=== PATIENT | male | born 1930 ===

== ENCOUNTER 2017-05-12 06:30 | Day surgery (SDC) | payer MEDICARE ==
[2017-01-06 11:29] VITALS: BMI 25.8
[2017-05-12 07:27] LABS: INR 1.81 (0.93-1.08); PROTHROMBIN TIME 20.1 SECONDS (9.4-12.5)
[2017-05-12] MEDS ORDERED: Propofol 10 mg/ml Inj (20 ML) ONE (07:49)
[2017-05-12] MEDS ORDERED: Lidocaine 2% Inj (20ml) ONE (07:51)
[2017-05-12] MEDS ORDERED: Iohexol 240 (50 ml) ONE (07:57)
[2017-05-12] MEDS ORDERED: Morphine 2 mg/ml ISec IVP PRN (08:49)
[2017-05-12] MEDS ORDERED: Lactated Ringer's 1,000 ML IV SCH (09:00)
--- NOTE | 2017-05-12 09:18 | RAD ---
PROCEDURE: Retrograde pyelogram HISTORY: R/O STONES COMPARISON: TECHNIQUE: Fluoroscopy was provided in the operating room. 55 seconds of fluoro time. Five images were submitted FINDINGS: The renal collecting system is partially visualized. The upper pole infundibulum and calices are opacified as well as a portion of a lower pole infundibulum. The renal pelvis is not opacified. There is a left ureteral stent in place IMPRESSION: As above
[2017-05-12 10:00] VITALS: PULSE 58; RESP 20; TEMP 98.6; O2SAT 97
[2017-05-12 11:14] VITALS: BP 179/84
--- NOTE | 2017-05-12 12:25 | RAD ---
HISTORY: is left ureteral stone visible COMPARISON: No prior. FINDINGS: BOWEL: Normal. No obstruction. No free air. BONES: Normal. OTHER FINDINGS: There is a left ureteral stent. There are no stones seen along side the stent IMPRESSION: No active disease.
--- NOTE | 2017-05-12 15:50 | OP ---
PROCEDURE DATE: 05/12/2017. PREOPERATIVE DIAGNOSIS: Obstructing left ureteral stone. POSTOPERATIVE DIAGNOSIS: Obstructing left ureteral stone. PROCEDURE: Cystoscopy left retrograde and insertion of left pigtail stent. SURGEON: Oskar Werner MD ANESTHESIA: General mask. DESCRIPTION OF OPERATION: After adequate general mask anesthesia was given, the patient was placed lithotomy, prepped and draped in the usual manner. A 22-Citizen Of [place] cystourethroscope was introduced under direct vision. The anterior urethra was normal. Prostatic urethra showed bilobar occlusion. The bladder showed no tumors, foreign bodies or stones. Orifices normal appearance, location. Clear efflux from the right. No efflux from the left. A 5-Citizen Of [place] open-ended catheter was placed to the opening of the left ureteral orifice. A Glidewire 0.035 straight was then advanced up to the left ureter and went up into the left kidney. Upon initial introduction of the cystoscope, urine from the bladder was obtained for C and S. Once the sensor wire was advanced to the kidney, the open-ended catheter was advanced over the Glidewire into the kidney. The Glidewire was removed. There was a hydronephrotic drip and urine was also collected from the left renal pelvis for C and S. I gently injected contrast filling the left renal pelvis. It went to just below the UPJ and would not drain further. At this point a 0.035 sensor wire was placed through the 5-Citizen Of [place] ureteral catheter and the ureteral catheter was then removed. Over the sensor wire, a 6-Citizen Of [place] 28 cm pigtail stent was advanced, when properly placed the Glidewire was removed and the stent coiled nicely in the left renal pelvis and in the bladder. The bladder was drained, the cystoscope was removed. The patient was awake and brought to the recovery room in good condition. Oskar Werner MD
== END 2017-05-12 11:15 | disposition home or self-care (01) ==
LOC: SDS 06:30
PROVIDERS: ATTEND Urology
DX: N20.1 Calculus of ureter (principal); I10 Essential (primary) hypertension; I25.10 Atherosclerotic heart disease of native coronary artery without angina pectoris; I49.9 Cardiac arrhythmia, unspecified
CPT/HCPCS: 36415; 52005; 52332; 74022; 74420; 85610; 85730; 87086; C1769; C2625; J2270; J2405; J2704; J3010; J7120 ×2; Q9966

== ENCOUNTER 2017-06-06 08:27 | Day surgery (SDC) | payer MEDICARE ==
[2017-01-06 11:29] VITALS: BMI 25.8
[2017-06-06] MEDS ORDERED: Iohexol 240 (50 ml) ONE (11:47)
[2017-06-06] MEDS ORDERED: cefTRIAXone (Rocephin) 1 gm Inj ONE (11:47)
[2017-06-06] MEDS ORDERED: Propofol 10 mg/ml Inj (20 ML) ONE (11:48)
[2017-06-06] MEDS ORDERED: Lidocaine 1% Inj (20ml) ONE (11:49)
[2017-06-06] MEDS ORDERED: HYDROmorphone 0.5 mg/0.5 ml ISec IVP PRN (13:10)
[2017-06-06] MEDS ORDERED: Lactated Ringer's 1,000 ML IV SCH (13:15)
[2017-06-06] MEDS ORDERED: HYDROmorphone 0.5 mg/0.5 ml ISec ONE ×2 (13:27→13:47)
[2017-06-06] MEDS ORDERED: HYDROmorphone 0.5 mg/0.5 ml ISec IVP ONE ×2 (13:29→13:49)
[2017-06-06 18:16] VITALS: BP 154/73; PULSE 88; RESP 20; TEMP 97.1; O2SAT 98
--- NOTE | 2017-06-06 22:15 | OP ---
PROCEDURE DATE: 06/06/2017 PREOPERATIVE DIAGNOSES: 1. Left ureteral calculus. 2. Left hydronephrosis. POSTOPERATIVE DIAGNOSIS: Left ureteral calculi. PROCEDURES: 1. Cystoscopy. 2. Removal of left stent. 3. Left ureteroscopy. 4. Laser lithotripsy of multiple calculi. 5. Basket extraction of calculi. 6. Insertion of left ureteral stent. SURGEON: Dr. Nikos Cole. ANESTHESIA: General. SPECIMENS: Stone fragments were sent to pathology. DRAINS: A 6 x 24 left ureteral stent. COMPLICATIONS: There were none. OPERATIVE FINDINGS: After informed consent was obtained, the patient was taken to the operating room, placed on the operating room table. Anesthesia was administered. The patient was placed in the dorsal lithotomy position and prepped and draped in usual sterile fashion. A 22-[place] cystoscope was then placed in the patient's urethra and passed under direct vision until the bladder was entered. A full survey inspection of bladder was then performed, which revealed no stones or tumors. There was a stent noted exiting from the left ureteral orifice. On fluoroscopy, the stent was noted. There were no noted calcific densities along the stent. At this point, the stent was grasped with a grasping forceps and was withdrawn through the urethral meatus. On fluoroscopy, the stent was noted to uncoil easily. The stent was then grasped at the meatus and removed without difficulty. The cystoscope was then repassed and an open-ended ureteral catheter was guided into the left ureteral orifice. Contrast was then instilled into the system during real-time fluoroscopy. There was a filling defect noted in the lower portion of the upper ureter around the L3 vertebral body. At this point, a sensor wire was obtained, it was passed through the open-ended ureteral catheter and advanced up to ureter until it coiled in the upper collecting system. The open-ended ureteral catheter was removed. The bladder was drained. The cystoscope was removed. A 7 [place] semi-rigid ureteroscope was obtained. It was passed into the bladder under direct vision and guided into the left ureteral orifice. The ureteroscope was then advanced proximally up the ureter. In the upper portion of the distal ureter, a stone was noted. It did not appear obstructing, but it was semi-impacted into the lateral ureteral wall. The scope was able to be passed beyond the stone without difficulty and advanced more proximally under direct vision. In the area near the L3 vertebral body, a large yellowish stone was encountered. At this point, a Holmium laser fiber was obtained, it was advanced through the ureteroscope and fragmentation of the stone was begun. The stone was able to be fragmented into multiple small pieces. At this point, the scope was withdrawn to the level of the other stone and again using the laser, the stone was able to be moved off of the wall and fragmented into small pieces. At this point, the laser was placed on standby, the fiber was removed and a stone basket was placed. Starting with upper fragments, the larger fragments were able to be basketed and removed from the patient; multiple passes were made with the ureteroscope. After the last pass, there were no remaining appreciable sized pieces, none of the remaining fragments appeared greater than 1 mm in size. At this point, the procedure was completed, the ureteroscope was removed. The cystoscope was repassed for back loading guidewire. An open-ended ureteral catheter was passed and the guidewire was removed. Contrast was instilled into the system. There were no filling defects noted. There was no extravasation noted. At this point, a 6 x 24 stent was obtained. It was passed over the wire into the bladder and into the left ureter. The stent was advanced proximally until it was in at the appropriate depth. When the stent was in place, guidewire was removed. A coil was seen in renal pelvis on fluoroscopy. A coil was seen in bladder on cystoscopy; string was left intact and to be used for stent removal in my office. At this point, the procedure was completed, the bladder was drained. The cystoscope was removed. The patient tolerated the procedure well and was taken to the recovery room awake in stable condition. Nikos Cole MD
--- NOTE | 2017-06-07 17:49 | RAD ---
PROCEDURE: Fluoroscopy up to 1 hour HISTORY: REMOVAL STENT / LASER LITHOTRIPSY (LEFT) COMPARISON: TECHNIQUE: Fluoroscopy was provided in the operating room. 71.6 seconds of fluoro time were used. Fifteen images were submitted FINDINGS: The study shows placement of a left ureteral stent IMPRESSION: As above
== END 2017-06-06 18:00 | disposition home or self-care (01) ==
LOC: SDS 08:27
PROVIDERS: ATTEND Urology
DX: N13.2 Hydronephrosis with renal and ureteral calculous obstruction (principal); I25.10 Atherosclerotic heart disease of native coronary artery without angina pectoris; I10 Essential (primary) hypertension; I25.2 Old myocardial infarction
CPT/HCPCS: 52352; 52356; 76000; 88300; C1758; C1769; C2625; J0696; J1170; J2704; J3010; J7120 ×2; Q9966

== ENCOUNTER 2017-06-07 13:43 | Inpatient (IN) | payer MEDICARE ==
[2017-06-07 13:44] VITALS: BMI 25.8
--- NOTE | 2017-06-07 15:27 | ED PDOC ---
Arrival/HPI - General Chief Complaint: Abdominal Pain Time Seen by Provider: 06/07/17 14:58 Historian: Patient - History of Present Illness Narrative History of Present Illness (Text): 06/07/17 15:21 A 86 year old male, whose past medical history includes kidney stones with recent stent placement approximately 1 month ago, presents to the emergency department complaining of fevers and chills since last night. Patient was last given Tylenol at 12:00 today. reports patient had surgery yesterday to remove a kidney stone. Patient notes mild nausea but denies any vomiting, diarrhea, abdominal pain, chest pain, shortness of breath, cough, sore throat or any other complaints. Urologist: Dr. Cole Time/Duration: Other (last night) Symptom Course: Unchanged Context: Home Past Medical History - Provider Review Nursing Documentation Reviewed: Yes - Infectious Disease Hx of Infectious Diseases: None - Tetanus Immunization Tetanus Immunization: Unknown - Cardiac Hx Pacemaker: No - Pulmonary Hx Respiratory Disorders: No - Neurological Hx Paralysis: No - HEENT Hx HEENT Disorder: No - Renal Hx Renal Disorder: No Hx Kidney Stones: Yes - Endocrine/Metabolic Hx Endocrine Disorders: No - Hematological/Oncological Hx Blood Transfusions: No - Integumentary Hx Dermatological Disorder: No - Musculoskeletal/Rheumatological Hx Musculoskeletal Disorders: No - Gastrointestinal Hx Bowel Surgery: Yes - Genitourinary/Gynecological Other/Comment: colon CA - Psychiatric Hx Substance Use: No - Surgical History Other/Comment: urinary stents - Anesthesia Hx Malignant Hyperthermia: No - Suicidal Assessment Feels Threatened In Home Enviroment: No Family/Social History - Physician Review Nursing Documentation Reviewed: Yes Family/Social History: No Known Family HX Smoking Status: Former Smoker Hx Alcohol Use: No Hx Substance Use: No Allergies/Home Meds Allergies/Adverse Reactions: Allergies No Known Allergies Allergy (Verified 06/07/17 14:51) Home Medications: Home Meds Medication Instructions Recorded Confirmed Carvedilol [Coreg] 12.5 mg PO DAILY 06/07/17 06/07/17 Quinapril [Accupril] 20 mg PO DAILY 06/07/17 06/07/17 Simvastatin [Zocor] 40 mg PO DAILY 06/07/17 06/07/17 Spironolactone [Aldactone] 25 mg PO DAILY 06/07/17 06/07/17 Zolpidem [Ambien] 10 mg PO DAILY 06/07/17 06/07/17 Review of Systems - Review of Systems Constitutional: Fatigue, Fevers, Night Sweats Eyes: absent: Vision Changes ENT: absent: Sore Throat Respiratory: absent: SOB, Cough Cardiovascular: absent: Chest Pain Gastrointestinal: Nausea. absent: Abdominal Pain, Diarrhea, Vomiting Genitourinary Male: Frequency. absent: Hematuria, Urinary Output Changes Musculoskeletal: Back Pain Skin: absent: Rash Neurological: absent: Dizziness Endocrine: absent: Polyuria Hemo/Lymphatic: absent: Easy Bleeding Physical Exam - Physical Exam Narrative Physical Exam (Text): Head: Atraumatic. Normocephalic. Eyes: PERRL. EOMI. Conjunctivae are not pale. ENT: Mucous membranes are moist and intact. Oropharynx is clear and symmetric. Neck: Supple. Full ROM. No JVD. No lymphadenopathy. Cardiovascular: Regular rate. Regular rhythm. No murmurs, rubs, or gallops. Distal pulses are 2+ and symmetric. Pulmonary/Chest: No evidence of respiratory distress. Clear to auscultation bilaterally. No wheezing, rales or rhonchi. Abdominal: Soft and non-distended. There is no tenderness. No rebound, guarding, or rigidity. No organomegaly. Good bowel sounds. Back: No CVA tenderness. Extremities: No edema. No cyanosis. No clubbing. Full range of motion in all extremities. No calf tenderness. Skin: Skin is warm and dry. No petechiae. No purpura. Neurological: Alert, awake. Motor and sensory exam intact. No meningeal signs. Psychiatric: Good eye contact. Normal interaction, affect, and behavior. 06/07/17 23:07 Vital Signs Reviewed: Yes Vital Signs Temp Pulse Resp BP Pulse Ox 06/07/17 17:27 101 F H 85 18 142/72 95 06/07/17 15:42 99.5 F 06/07/17 14:45 99.1 F 68 17 104/62 95 Temperature: Febrile Blood Pressure: Normal Pulse: Regular Respiratory Rate: Normal Appearance: Positive for: Well-Appearing, Non-Toxic, Comfortable, Uncomfortable Pain Distress: Mild Mental Status: Positive for: Alert and Oriented X 3 Medical Decision Making ED Course and Treatment: 06/07/17 15:21 Impression: A 86 year old male with fever and chills. Patient had surgery yesterday to remove kidney stone. Plan includes sepsis workup and cultures. Will consult with Dr. Cole. Differential Diagnosis included but are not limited to: Sepsis vs. UTI vs. Pyelonephritis Plan: -- Chest xray -- EKG -- Labs -- Blood and Urine culture -- Influenza A B stat -- Rocephin and IV fluids -- Reassess and disposition Progress Notes: Patient on my examination is not tachycardic or hypotensive with serial exams. He denies acute pain. States symptoms of chills, fever nausea occurred "after stones were removed yesterday". Denies these symptoms prior to procedure yesterday. Initially afebrile in ED. No cough. No abdominal pain. No NEW back pain. Denies chest pain or shortness of breath. History supplemented by daughter and family at bedside. Report Date : 06/07/2017 16:40:35 Procedure: Chest xray Dictator : Jameel Canales MD IMPRESSION: No active disease. Initial lactate unremarkable. He remains comfortable, but developed fever in ED. I suspect possible uti, urinary ? stent infection based on history. He has no acute pain at this time. I discussed case directly with Dr. Cole, who reports patient received iv antibiotics yesterday. Labs reviewed. Cr at baseline. Have hydrated patient in ED. As patient with unremarkable lactate, not hypotensive, not tachycardic, baseline creatitine, will initially admit to [facility] bed. IV rocephin ordered. Patient's case d/w hospitalist covering for Dr. Espinosa to monitor symptoms as inpatient and perform serial exams to assess for sepsis. Labs reviewed with patient and family and Dr. Cole. Care turned over to hospitalist at 1800. Further urologic treatment as per Dr. Cole. - Lab Interpretations Microbiology Results: Microbiology Results 06/07/17 15:49 Blood Blood Culture - Preliminary NO GROWTH AFTER 48 HOURS 06/07/17 15:45 Blood Blood Culture - Preliminary NO GROWTH AFTER 24 HOURS 06/07/17 16:25 Urine Urine Culture - Final No Growth (<1,000 CFU/ML) Lab Results: 06/07/17 15:49 06/07/17 15:49 Lab Results 06/07/17 15:54: Influenza Typ A,B (EIA) Negative for flu a/b 06/07/17 15:49: Sodium 135, Chloride 98, Potassium 4.7, Carbon Dioxide 24, Anion Gap 18, BUN 38 H, Creatinine 1.7 H, Est GFR ( Amer) 46, Est GFR ( Non-Af Amer) 38, Random Glucose 132 H, Calcium 9.8, Total Bilirubin 1.2, AST 39 , ALT 59 H, Alkaline Phosphatase 214 H D, Total Protein 7.9, Albumin 4.0, Globulin 3.9, Albumin/Globulin Ratio 1.0 L 06/07/17 15:49: pO2 28 L, VBG pH 7.35, VBG pCO2 46.0, VBG HCO3 25.4, VBG Total CO2 26.8, VBG O2 Sat (Calc) 57.3, VBG Base Excess -0.6 L, VBG Potassium 4.7, Sodium 135.0, Chloride 98.0, Glucose 134 H, Lactate 1.7, FiO2 21.0, Venous Blood Potassium 4.7 06/07/17 15:49: PT 16.7 H, INR 1.45 H, APTT 28.1 06/07/17 15:49: WBC 16.0 H D, RBC 3.95, Hgb 12.5 L, Hct 38.1 L, MCV 96.5, MCH 31.6, MCHC 32.8, RDW 13.8, Plt Count 209, MPV 10.2, Gran % 81.3 H, Lymph % (Auto ) 7.9 L, [place] % (Auto) 10.6 H, Eos % (Auto) 0.1 L, Baso % (Auto) 0.1, Gran # 13.00 H, Lymph # 1.3, [place] # 1.7 H, Eos # 0.0, Baso # 0.02 I have reviewed the lab results: Yes - RAD Interpretation Radiology Orders: 06/07/17 15:36 CHEST TWO VIEWS (PA/LAT) [RAD] Stat - Medication Orders Current Medication Orders: Acetaminophen (Tylenol 325mg Tab) 650 mg PO Q4H PRN PRN Reason: Fever >100.4 F Last Admin: 06/09/17 03:47 Dose: 650 mg MAR Pain/Vitals Document 06/09/17 03:47 LOR (Rec: 06/09/17 03:47 [place] [facility] [id number] Pain Reassessment Is This A Pain ReAssessment? No Sleep Is patient sleeping during reassessment? No Presence of Pain Presence of Pain Yes Location Pain Location Body Warp Dyeing Vat Tender Atorvastatin Calcium (Lipitor) 20 mg PO DIN [facility] Last Admin: 06/08/17 17:41 Dose: 20 mg Carvedilol (Coreg) 12.5 mg PO DAILY [facility] Last Admin: 06/09/17 09:32 Dose: 12.5 mg MAR Pulse and Blood Pressure Document 06/09/17 09:32 CV (Rec: 06/09/17 09:33 CV [facility] [id number] Pulse Pulse Rate (60-90) 77 Blood Pressure Blood Pressure (100/60-150/90) 152/83 Enoxaparin Sodium (Lovenox) 30 mg SC DAILY [facility] PRN Reason: Protocol Last Admin: 06/09/17 09:31 Dose: 30 mg Subcutaneous Administrations Document 06/09/17 09:31 CV (Rec: 06/09/17 09:32 CV [facility] [id number] Charges for Administration # of Subcutaneous Administrations 1 Famotidine (Pepcid) 20 mg PO DAILY [facility] Last Admin: 06/09/17 09:32 Dose: 20 mg Sodium Chloride (Sodium Chloride 0.9%) 1,000 mls @ 125 mls/hr IV .Q8H [facility] Last Admin: 06/09/17 05:53 Dose: 125 mls/hr eMAR Start Stop Document 06/09/17 05:53 ZARAL (Rec: 06/09/17 05:54 ZARAL [facility] [id number] Intravenous Solution Start Date 06/09/17 Start Time 06:00 Vancomycin HCl (Vancomycin 1gm) 1 gm in 250 mls @ 167 mls/hr IVPB DAILY [facility] PRN Reason: Protocol Last Admin: 06/08/17 09:22 Dose: 167 mls/hr eMAR Start Stop Document 06/08/17 09:22 CV (Rec: 06/08/17 09:22 CV [facility] [id number] Intravenous Solution Start Date 06/08/17 Start Time 09:22 Cefepime HCl (Maxipime 1gm) 1 gm in 100 mls @ 100 mls/hr IVPB Q24H [facility] PRN Reason: Protocol Last Admin: 06/08/17 21:20 Dose: 100 mls/hr eMAR Start Stop Document 06/08/17 21:20 ZARAL (Rec: 06/08/17 21:20 ZARAL [facility] [id number] Intravenous Solution Start Date 06/08/17 Start Time 08:00 End Date 06/08/17 End time 09:00 Total Infusion Time 60 Lisinopril (Zestril) 20 mg PO DAILY [facility] Last Admin: 06/09/17 09:32 Dose: 20 mg MAR Pulse and Blood Pressure Document 06/09/17 09:32 CV (Rec: 06/09/17 09:32 CV [facility] [id number][place] Pulse Pulse Rate (60-90) 77 Blood Pressure Blood Pressure (100/60-150/90) 152/83 Ondansetron HCl (Zofran Inj) 4 mg IVP Q6H PRN PRN Reason: Nausea/Vomiting Spironolactone (Aldactone) 25 mg PO DAILY [facility] Last Admin: 06/09/17 09:32 Dose: 25 mg Trazodone HCl (Desyrel) 50 mg PO HS [facility] Discontinued Medications Acetaminophen (Tylenol 325mg Tab) 650 mg PO ONCE STA Stop: 06/07/17 18:06 Last Admin: 06/07/17 18:20 Dose: 650 mg MAR Pain/Vitals Document 06/07/17 18:20 SRE (Rec: 06/07/17 18:22 SRE [id number]) Pain Reassessment Is This A Pain ReAssessment? Yes Sleep Is patient sleeping during reassessment? No Presence of Pain Presence of Pain Yes Diphenhydramine HCl (Benadryl) 25 mg PO ONCE ONE Stop: 06/07/17 22:38 Last Admin: 06/07/17 22:55 Dose: 25 mg Famotidine (Pepcid) 20 mg IVP DAILY [facility] Last Admin: 06/08/17 09:22 Dose: 20 mg IVP Administration Document 06/08/17 09:22 CV (Rec: 06/08/17 09:23 CV [facility] [id number] Charges for Administration # of IVP Administrations 1 Ceftriaxone Sodium (Rocephin 1 Gram Ivpb) 1 gm in 100 mls @ 200 mls/hr IVPB ONCE STA PRN Reason: Protocol Stop: 06/07/17 15:57 Last Admin: 06/07/17 16:35 Dose: 200 mls/hr eMAR Start Stop Document 06/07/17 16:35 SRE (Rec: 06/07/17 16:36 SRE [id number]) Intravenous Solution Start Date 06/07/17 Start Time 16:00 End Date 06/07/17 End time 17:00 Total Infusion Time 60 Sodium Chloride (Sodium Chloride 0.9%) 1,000 mls @ 100 mls/hr IV .Q10H [facility] Last Admin: 06/07/17 16:34 Dose: 100 mls/hr eMAR Start Stop Document 06/07/17 16:34 SRE (Rec: 06/07/17 16:34 SRE [id number]) Intravenous Solution Start Date 06/07/17 Start Time 16:30 Sodium Chloride (Sodium Chloride 0.9%) 1,000 mls @ 1,000 mls/hr IV .Q1H [facility] Stop: 06/07/17 17:28 Last Admin: 06/07/17 16:36 Dose: 1,000 mls/hr eMAR Start Stop Document 06/07/17 16:36 SRE (Rec: 06/07/17 16:37 SRE [id number]) Intravenous Solution Start Date 06/07/17 Start Time 16:36 End Date 06/07/17 End time 17:30 Total Infusion Time 54 Vancomycin HCl (Vancomycin 1gm) 1 gm in 250 mls @ 167 mls/hr IVPB DAILY [facility] PRN Reason: Protocol Zolpidem Tartrate (Ambien) 10 mg PO DAILY [facility] PRN Reason: Protocol Zolpidem Tartrate (Ambien) 5 mg PO HS PRN PRN Reason: Insomnia Last Admin: 06/08/17 21:34 Dose: 5 mg Behavioural Document 06/08/17 21:34 LOR (Rec: 06/08/17 21:34 ZARAL [facility] [id number] Maintenance Maintenance Dose Yes Behavior Behavior for Medication: Insomnia - Scribe Statement The provider has reviewed the documentation as recorded by the Juan Chun Provider Scribe Attestation: All medical record entries made by the Scribe were at my direction and personally dictated by me. I have reviewed the chart and agree that the record accurately reflects my personal performance of the history, physical exam, medical decision making, and the department course for this patient. I have also personally directed, reviewed, and agree with the discharge instructions and disposition. Disposition/Present on Arrival - Present on Arrival Any Indicators Present on Arrival: No History of DVT/PE: No History of Uncontrolled Diabetes: No Urinary Catheter: No History of Decub. Ulcer: No History Surgical Site Infection Following: None - Disposition Have Diagnosis and Disposition been Completed?: Yes Diagnosis: UTI (urinary tract infection), Fever Disposition: HOSPITALIZED Disposition Time: 17:00 Patient Plan: Admission Patient Problems: Current Active Problems Problem Status Onset Fever Acute UTI (urinary tract infection) Acute Condition: FAIR
[2017-06-07] MEDS ORDERED: cefTRIAXone 1 gm 1 GM/100 ML BAG IVPB STA (15:28)
[2017-06-07] MEDS ORDERED: Sodium Chloride 0.9% 1,000 ML IV SCH (15:30)
[2017-06-07 15:55] LABS: VENOUS BLOOD GAS BASE EXCESS -0.6 mmol/L (0.0-2.0); VENOUS BLOOD GAS PO2 28 mm/Hg (30-55); VENOUS BLOOD PH 7.35 (7.32-7.43)
[2017-06-07 15:57] LABS: BASO # 0.02 K/mm3 (0.0-2.0); BASO % 0.1 % (0.0-3.0); EOS % 0.1 % (1.5-5.0); GRAN % 81.3 % (50.0-68.0); HEMOGLOBIN 12.5 g/dL (14.0-18.0); LYMPH # 1.3 (1.2-3.4); LYMPH % 7.9 % (22.0-35.0); MEAN CELL VOLUME 96.5 fl (80.0-105.0); MEAN CORPUSCULAR HEMOGLOBIN 31.6 pg (25.0-35.0); MEAN CORPUSCULAR HGB CONC 32.8 g/dl (31.0-37.0); MEAN PLATELET VOLUME 10.2 fl (7.0-11.0); MONO # 1.7 (0.1-0.6); MONO % 10.6 % (1.0-6.0); RBC 3.95 10^6/uL (3.5-6.1); RED CELL DISTRIBUTION WIDTH 13.8 % (11.5-14.5)
[2017-06-07 16:13] LABS: CALCIUM 9.8 mg/dL (8.4-10.5)
[2017-06-07 16:27] LABS: INR 1.45 (0.93-1.08); PARTIAL THROMBOPLASTIN TIME 28.1 Seconds (25.1-36.5); PROTHROMBIN TIME 16.7 SECONDS (9.4-12.5)
[2017-06-07] MEDS ORDERED: Sodium Chloride 0.9% 1,000 ML IV STA (16:29)
--- NOTE | 2017-06-07 16:42 | RAD ---
HISTORY: fever COMPARISON: 05/11/2017 TECHNIQUE: Chest PA and lateral FINDINGS: LUNGS: No active pulmonary disease. PLEURA: No significant pleural effusion identified. No pneumothorax apparent. CARDIOVASCULAR: Mild cardiomegaly. Sternal wires OSSEOUS STRUCTURES: No significant abnormalities. VISUALIZED UPPER ABDOMEN: Normal. OTHER FINDINGS: None. IMPRESSION: No active disease.
[2017-06-07] MEDS: Sodium Chloride 0.9% 1,000 ML IV SCH (18:23)
--- NOTE | 2017-06-07 18:25 | CP.PCM.HP ---
<Rosalie Hutson - Last Filed: 06/07/17 18:11> History of Present Illness - History of Present Illness History of Present Illness: Rosalie Hutson, PGY1, Medicine H&P for Dr. Box: CC: fever/chills 86 year old Tamazight speaking male with hx nephrolithiasis s/p ureter stent [address] Werner, afib (on eliquis), HTN, CAD s/p CABG, presents for fever and chills for past few days. Most HPI obtained from pt's daughter at bedside. Three weeks ago, pt had a left ureteral stent placed for passage of stones by Dr Werner. Pt was supposed to have the stent removed yesterday by Dr Cole. However , when performing the procedure, there were more stones still presents. Therefore, renal stones were removed and the stent was left in place. Post procedure, pt started having low grade temp, chills and nausea. Of note, as per daughter, pt has been having subjective fevers, chills and malaise for past few days. Reports increased urinary frequency/discomfort, dark urine, decreased appetite. Denies mental status changes, neck pain, blurry vision, cough, sob, abdominal pain, diarrhea, constipation, leg swelling. Pt had a normal stress test and echocardiogram with Dr Jeong in 03/2017. In ED, pt mildly febrile 100.4F, leukocytosis 16, flu neg, UA pending. Received rocephin, tylenol, 1L NS bolus. Flu neg. 12 point ROS obtained and neg, except as per HPI. Uro: Dr Cole Cardio: Jean-Paul PMH: HTN, HLD, nephrolithiasis (many episodes in past 5 years), CAD s/p CABG, afib (on Elliquis), colon cancer PSH: right carotid endarterectomy, CABG, cholecystectomy, colon resection All: NKA FH: denies SH: lives with (daughter and other family members live nearby). Former tobacco user, quit 30 years ago, prior 1 ppd x 30 years. Social ETOH use. no drugs. Present on Admission - Present on Admission Any Indicators Present on Admission: No History of DVT/PE: No History of Uncontrolled Diabetes: No Urinary Catheter: No Decubitus Ulcer Present: No Review of Systems - Review of Systems All systems: reviewed and no additional remarkable complaints except Review of Systems: as per HPI Past Patient History - Infectious Disease Hx of Infectious Diseases: None - Tetanus Immunizations Tetanus Immunization: Unknown - Past Social History Smoking Status: Former Smoker - CARDIAC Hx Pacemaker: No - PULMONARY Hx Respiratory Disorders: No - NEUROLOGICAL Hx Paralysis: No - HEENT Hx HEENT Problems: No - RENAL Hx Chronic Kidney Disease: No Hx Kidney Stones: Yes - ENDOCRINE/METABOLIC Hx Endocrine Disorders: No - HEMATOLOGICAL/ONCOLOGICAL Hx Blood Transfusions: No - INTEGUMENTARY Hx Dermatological Problems: No - MUSCULOSKELETAL/RHEUMATOLOGICAL Hx Musculoskeletal Disorders: No - GASTROINTESTINAL Hx Bowel Surgery: Yes - GENITOURINARY/GYNECOLOGICAL Other/Comment: colon CA - PSYCHIATRIC Hx Substance Use: No - SURGICAL HISTORY Other/Comment: urinary stents - ANESTHESIA Hx Malignant Hyperthermia: No Meds Allergies/Adverse Reactions: Allergies Allergy/AdvReac Type Severity Reaction Status Date / Time No Known Allergies Allergy Verified 06/07/17 14:51 Physical Exam - Constitutional Appears: No Acute Distress, Older Than Stated Age, Other (ill) - Head Exam Head Exam: ATRAUMATIC, NORMOCEPHALIC - Eye Exam Eye Exam: EOMI, PERRL. absent: Conjunctival injection, Nystagmus, Periorbital swelling, Scleral icterus Pupil Exam: NORMAL ACCOMODATION, PERRL. absent: Fixed, Irregular, Unequal - ENT Exam ENT Exam: Mucous Membranes Dry - Neck Exam Neck exam: Positive for: Normal Inspection - Respiratory Exam Respiratory Exam: Clear to Auscultation Bilateral, NORMAL BREATHING PATTERN. absent: Accessory Muscle Use, Chest Wall Tenderness, Rales, Rhonchi, Wheezes, Respiratory Distress - Cardiovascular Exam Cardiovascular Exam: RRR, +S1, +S2. absent: Systolic Murmur - GI/Abdominal Exam GI & Abdominal Exam: Normal Bowel Sounds, Soft. absent: Diminished Bowel Sounds , Guarding, Organomegaly, Rebound, Rigid, Tenderness - Extremities Exam Extremities exam: Positive for: normal inspection. Negative for: calf tenderness, pedal edema - Back Exam Back exam: NORMAL INSPECTION. absent: CVA tenderness (L), CVA tenderness (R) - Neurological Exam Neurological exam: Alert, Oriented x3 - Psychiatric Exam Psychiatric exam: Normal Affect, Normal Mood - Skin Skin Exam: Dry, Normal Color, Warm Results - Vital Signs Recent Vital Signs: Last Vital Signs Temp 101 F H 06/07/17 17:27 Pulse 85 06/07/17 17:27 Resp 18 06/07/17 17:27 BP 142/72 06/07/17 17:27 Pulse Ox 95 06/07/17 17:27 - Labs Result Diagrams: 06/07/17 15:49 06/07/17 15:49 Labs: Laboratory Results - last 24 hr 06/07/17 06/07/17 06/07/17 15:49 15:49 15:49 WBC 16.0 H D RBC 3.95 Hgb 12.5 L Hct 38.1 L MCV 96.5 MCH 31.6 MCHC 32.8 RDW 13.8 Plt Count 209 MPV 10.2 Gran % 81.3 H Lymph % (Auto) 7.9 L [place] % (Auto) 10.6 H Eos % (Auto) 0.1 L Baso % (Auto) 0.1 Gran # 13.00 H Lymph # 1.3 [place] # 1.7 H Eos # 0.0 Baso # 0.02 PT 16.7 H INR 1.45 H APTT 28.1 pO2 28 L VBG pH 7.35 VBG pCO2 46.0 VBG HCO3 25.4 VBG Total CO2 26.8 VBG O2 Sat (Calc) 57.3 VBG Base Excess -0.6 L VBG Potassium 4.7 Sodium 135.0 Chloride 98.0 Glucose 134 H Lactate 1.7 FiO2 21.0 Potassium Carbon Dioxide Anion Gap BUN Creatinine Est GFR ( Amer) Est GFR (Non-Af Amer) Random Glucose Calcium Total Bilirubin AST ALT Alkaline Phosphatase Total Protein Albumin Globulin Albumin/Globulin Ratio Venous Blood Potassium 4.7 Influenza Typ A,B (EIA) 06/07/17 06/07/17 15:49 15:54 WBC RBC Hgb Hct MCV MCH MCHC RDW Plt Count MPV Gran % Lymph % (Auto) [place] % (Auto) Eos % (Auto) Baso % (Auto) Gran # Lymph # [place] # Eos # Baso # PT INR APTT pO2 VBG pH VBG pCO2 VBG HCO3 VBG Total CO2 VBG O2 Sat (Calc) VBG Base Excess VBG Potassium Sodium 135 Chloride 98 Glucose Lactate FiO2 Potassium 4.7 Carbon Dioxide 24 Anion Gap 18 BUN 38 H Creatinine 1.7 H Est GFR ( Amer) 46 Est GFR (Non-Af Amer) 38 Random Glucose 132 H Calcium 9.8 Total Bilirubin 1.2 AST 39 ALT 59 H Alkaline Phosphatase 214 H D Total Protein 7.9 Albumin 4.0 Globulin 3.9 Albumin/Globulin Ratio 1.0 L Venous Blood Potassium Influenza Typ A,B (EIA) Negative for flu a/b Assessment & Plan - Assessment and Plan (Free Text) Assessment: 86 year old male with hx nephrolithiasis s/p ureter stent 3 weeks ago, afib, HTN , CAD, admitted for sepsis: Sepsis: - 2/2 likely complicated UTI vs pyelonephritis - Febrile in ED, with leukocytosis 16 with urinary complaints. - Renal US - IVF at 125, procal, Blood and urine cultures - Zofran prn, start CLD - Start renally dosed Vancomycin and Zosyn - ID and Urology consulted. F/u recs SHERIE: - BUN/Cr 38/1.7 (baseline Cr 1.1-1.2) - Gentle hydration. Cont to monitor. Hx of afib: - Hold eliquis - Currently sinus rhythm in ED - C/w home Carvedilol (Hold if HR<60 or SBP<110) Hx of HTN: - C/w home med JENN-i and carvedilol and Aldactone (hold if SBP<110) Hx of HLD: - c/w home statin DVT ppx: lovenox sq GI PPX: pepcid Discussed with Dr Box. Rosalie Hutson, PGY1 - Date & Time Date: 06/07/17 Time: 18:25 <Reyes Box - Last Filed: 06/08/17 13:40> Results - Vital Signs Recent Vital Signs: Last Vital Signs Temp 98.8 F 06/08/17 08:01 Pulse 64 06/08/17 09:28 Resp 18 06/08/17 08:01 BP 133/73 06/08/17 09:28 Pulse Ox 95 06/08/17 08:01 - Labs Result Diagrams: 06/08/17 07:17 06/08/17 07:18 Labs: Laboratory Results - last 24 hr 06/07/17 06/08/17 06/08/17 23:45 06:35 07:17 WBC 17.8 H RBC 3.38 L Hgb 10.7 L Hct 32.0 L MCV 94.7 MCH 31.7 MCHC 33.4 RDW 14.1 Plt Count 172 MPV 10.2 Gran % 79.3 H Lymph % (Auto) 10.6 L [place] % (Auto) 10.0 H Eos % (Auto) 0.0 L Baso % (Auto) 0.1 Gran # 14.07 H Lymph # 1.9 [place] # 1.8 H Eos # 0.0 Baso # 0.02 Sodium Potassium Chloride Carbon Dioxide Anion Gap BUN Creatinine Est GFR ( Amer) Est GFR (Non-Af Amer) Random Glucose Calcium Phosphorus Magnesium Total Bilirubin AST ALT Alkaline Phosphatase Total Protein Albumin Globulin Albumin/Globulin Ratio Procalcitonin 17.03 H Urine Color Yellow Urine Appearance Sl cloudy Urine pH 6.0 Ur Specific [place] 1.015 Urine Protein 30 H Urine Glucose (UA) Negative Urine Ketones Negative Urine Blood Large H Urine Nitrate Negative Urine Bilirubin Negative Urine Urobilinogen 0.2 Ur Leukocyte Esterase Small H Urine RBC 15 - 20 Urine WBC 2 - 5 Ur Epithelial Cells 0 - 2 Urine Bacteria Rare 06/08/17 07:18 WBC RBC Hgb Hct MCV MCH MCHC RDW Plt Count MPV Gran % Lymph % (Auto) [place] % (Auto) Eos % (Auto) Baso % (Auto) Gran # Lymph # [place] # Eos # Baso # Sodium 136 Potassium 4.1 Chloride 105 Carbon Dioxide 22 Anion Gap 14 BUN 32 H Creatinine 1.4 Est GFR ( Amer) 58 Est GFR (Non-Af Amer) 48 Random Glucose 118 H Calcium 8.6 Phosphorus 3.2 Magnesium 1.8 Total Bilirubin 0.8 AST 31 ALT 52 Alkaline Phosphatase 166 H D Total Protein 6.0 Albumin 2.8 L Globulin 3.1 Albumin/Globulin Ratio 0.9 L Procalcitonin Urine Color Urine Appearance Urine pH Ur Specific [place] Urine Protein Urine Glucose (UA) Urine Ketones Urine Blood Urine Nitrate Urine Bilirubin Urine Urobilinogen Ur Leukocyte Esterase Urine RBC Urine WBC Ur Epithelial Cells Urine Bacteria Attending/Attestation - Attestation I have personally seen and examined this patient.: Yes I have fully participated in the care of the patient.: Yes I have reviewed all pertinent clinical information: Yes Notes (Text): 06/08/17 13:37 Patient was seen and examined with medical appointment clerk.Family is at bed side.Agreed with assessment and plan. 86 yrs old male with PMH of HTN,cad,sp CABAG,Nephrolithiasis, AF on Apixiban , is admitted with Sepsis, likely etiology is related.Patient is SP Left ureter stone removal by Urology yesterday.We will contin ue IV antibiotics, will follow up blood and urine cultures. We will also get Urology evaluation. Management plan was discussed in detail with the patient .Education was provided. 06/08/17 13:39
--- NOTE | 2017-06-07 20:02 | CP.PCM.CON ---
History of Present Illness - History of Present Illness History of Present Illness: Infectious Disease Consultation: June 07, 2017 86 yo male with recent placement of ureter stent [address] Werner. History of nephrolithiasis, Atrial fibrillation, hypertension, and coronary artery disease. There was also a history of colon cancer that required colon resection. The patient developed a low grade temp, chills, and nausea. The patient has been having increased urinary frequency, poor appetite , and dark urine. In ER the patient had leukocytosis and low grade fevers. Urinalysis sent and cultures pending. PMHx: Nephrolithiasis, Atrial Fibrillation, Hypertension, and Coronary Artery Disease History of colon Cancer PSHx: colon resection, right carotid endarterectomy, CABG, cholecystectomy Allergies: NKDA Social Hx: lives with No EtOH or illicit drugs Ex-tobacco use Active Medications Acetaminophen (Tylenol 325mg Tab) 650 mg PO Q4H PRN PRN Reason: Fever >100.4 F Atorvastatin Calcium (Lipitor) 20 mg PO DIN [facility] Carvedilol (Coreg) 12.5 mg PO DAILY [facility] Enoxaparin Sodium (Lovenox) 30 mg SC DAILY [facility] PRN Reason: Protocol Famotidine (Pepcid) 20 mg IVP DAILY [facility] Piperacillin Sod/Tazobactam Sod (Zosyn 3.375 In Ns 100ml) 100 mls @ 200 mls/hr IVPB Q6 [facility] PRN Reason: Protocol Stop: 06/08/17 06:29 Sodium Chloride (Sodium Chloride 0.9%) 1,000 mls @ 125 mls/hr IV .Q8H [facility] Last Admin: 06/07/17 18:23 Dose: 125 mls/hr Vancomycin HCl (Vancomycin 1gm) 1 gm in 250 mls @ 167 mls/hr IVPB DAILY [facility] PRN Reason: Protocol Lisinopril (Zestril) 20 mg PO DAILY [facility] Ondansetron HCl (Zofran Inj) 4 mg IVP Q6H PRN PRN Reason: Nausea/Vomiting Spironolactone (Aldactone) 25 mg PO DAILY [facility] Family Hx: none given ROS: low grade fever, chills, cough, nausea NO chest pain, abdominal pain, melena, hematuria, hematemesis, hematochezia, depression, anxiety, diarrhea, SOB, vision loss, hearing loss, LOC Past Patient History - Infectious Disease Hx of Infectious Diseases: None - Tetanus Immunizations Tetanus Immunization: Unknown - Past Social History Smoking Status: Former Smoker - CARDIAC Hx Pacemaker: No - PULMONARY Hx Respiratory Disorders: No - NEUROLOGICAL Hx Paralysis: No - HEENT Hx HEENT Problems: No - RENAL Hx Chronic Kidney Disease: No Hx Kidney Stones: Yes - ENDOCRINE/METABOLIC Hx Endocrine Disorders: No - HEMATOLOGICAL/ONCOLOGICAL Hx Blood Transfusions: No - INTEGUMENTARY Hx Dermatological Problems: No - MUSCULOSKELETAL/RHEUMATOLOGICAL Hx Musculoskeletal Disorders: No - GASTROINTESTINAL Hx Bowel Surgery: Yes - GENITOURINARY/GYNECOLOGICAL Other/Comment: colon CA - PSYCHIATRIC Hx Substance Use: No - SURGICAL HISTORY Other/Comment: urinary stents - ANESTHESIA Hx Malignant Hyperthermia: No Meds Allergies/Adverse Reactions: Allergies Allergy/AdvReac Type Severity Reaction Status Date / Time No Known Allergies Allergy Verified 06/07/17 14:51 - Medications Medications: Current Medications Acetaminophen (Tylenol 325mg Tab) 650 mg PO Q4H PRN PRN Reason: Fever >100.4 F Atorvastatin Calcium (Lipitor) 20 mg PO DIN [facility] Carvedilol (Coreg) 12.5 mg PO DAILY [facility] Enoxaparin Sodium (Lovenox) 30 mg SC DAILY [facility] PRN Reason: Protocol Famotidine (Pepcid) 20 mg IVP DAILY [facility] Piperacillin Sod/Tazobactam Sod (Zosyn 3.375 In Ns 100ml) 100 mls @ 200 mls/hr IVPB Q6 [facility] PRN Reason: Protocol Stop: 06/08/17 06:29 Sodium Chloride (Sodium Chloride 0.9%) 1,000 mls @ 125 mls/hr IV .Q8H [facility] Last Admin: 06/07/17 18:23 Dose: 125 mls/hr Vancomycin HCl (Vancomycin 1gm) 1 gm in 250 mls @ 167 mls/hr IVPB DAILY [facility] PRN Reason: Protocol Lisinopril (Zestril) 20 mg PO DAILY [facility] Ondansetron HCl (Zofran Inj) 4 mg IVP Q6H PRN PRN Reason: Nausea/Vomiting Spironolactone (Aldactone) 25 mg PO DAILY [facility] Physical Exam - Constitutional Appears: Non-toxic, No Acute Distress - Head Exam Head Exam: ATRAUMATIC, NORMOCEPHALIC - Eye Exam Eye Exam: EOMI, PERRL Pupil Exam: NORMAL ACCOMODATION, PERRL - ENT Exam ENT Exam: Mucous Membranes Moist, Normal External Ear Exam, TM's Normal Bilaterally - Neck Exam Neck exam: Positive for: Full Rom, Normal Inspection - Respiratory Exam Respiratory Exam: Clear to Auscultation Bilateral, NORMAL BREATHING PATTERN. absent: Rales, Rhonchi, Wheezes - Cardiovascular Exam Cardiovascular Exam: REGULAR RHYTHM, RRR, +S1, +S2 - GI/Abdominal Exam GI & Abdominal Exam: Normal Bowel Sounds, Soft. absent: Distended, Tenderness - Extremities Exam Extremities exam: Positive for: full ROM, normal inspection - Neurological Exam Neurological exam: Alert, CN II-XII Intact, Oriented x3 - Psychiatric Exam Psychiatric exam: Normal Affect, Normal Mood - Skin Skin Exam: Intact, Normal Color Results - Vital Signs Recent Vital Signs: Last Vital Signs Temp 101 F H 06/07/17 17:27 Pulse 85 06/07/17 17:27 Resp 18 06/07/17 17:27 BP 142/72 06/07/17 17:27 Pulse Ox 95 06/07/17 17:27 - Labs Result Diagrams: 06/07/17 15:49 06/07/17 15:49 Assessment & Plan - Assessment and Plan (Free Text) Assessment: 86 yo male with recent stent placement for nephrolithiasis presented with low grade fevers, chills, and increased urinary frequency. Stover cultures sent. Suspect UTI and possible urosepsis. Leukocytosis of 16.0. Creatinine of 1.7 at this time. Renal insufficiency unclear if secondary to acute kidney injury but prior laboratories indicate that the patient has some level of CKD. Continue on Vancomycin and Cefepime for now... would not use Zosyn with Vancomycin in a patient with borderline renal function. Supportive care. Thank you for allowing me to participate in the care of the patient, we will follow with you.
[2017-06-07] MEDS: Vancomycin 1gm in NS 250ml 1 GM/250 ML BAG IVPB SCH (20:39)
[2017-06-07] MEDS: Cefepime 1gm in NS 100ml 1 GM/100 ML BAG IVPB SCH (22:12)
--- NOTE | 2017-06-07 23:39 | CARD ---
APPROVED REPORT EKG Measurement Heart [id number] [place] 160P [id number] <Conclusion> Junctional rhythm Left bundle branch block Abnormal ECG
[2017-06-08] MEDS ORDERED: Piperacillin/Tazobact 3.375 gm 100 ML IVPB SCH
--- NOTE | 2017-06-08 00:11 | US ---
EXAM: US Retroperitoneal Limited, Renal CLINICAL HISTORY: 86 years old, male; Abnormal findings; Abnormal lab test; Abnormal kidney function lab tests; Additional info: Ureter stent TECHNIQUE: Real-time ultrasound of the retroperitoneum (limited) with image documentation. COMPARISON: US - RENAL 2015-09-23 11:10 FINDINGS: Right kidney: Right kidney measures 10.9 CM longitudinally. 2 CM right upper pole renal cyst. 1.5 CM lower pole simple cyst. 9 mm nonobstructing right lower pole renal calculus. 1.3 CM mid pole simple cyst. No hydronephrosis. Left kidney: Left kidney measures 11.3 CM longitudinally. 1.1 CM left upper pole simple cyst. 1.4 CM left lower pole simple cyst. No stones. No hydronephrosis. IMPRESSION: 1. No hydronephrosis. 2. Nonobstructing right lower pole renal calculus. 3. Bilateral renal simple cysts.
[2017-06-08 00:13] LABS: URINE BILIRUBIN NEGATIVE (NEGATIVE); URINE BLOOD LARGE (NEGATIVE); URINE GLUCOSE (UA) NEGATIVE (NEGATIVE); URINE LEUKOCYTE ESTERASE SMALL Leu/uL (NEGATIVE); URINE NITRATE NEGATIVE (NEGATIVE); URINE PROTEIN 30 mg/dL (<30 mg/dL); URINE UROBILINOGEN 0.2 E.U./dL (<1 E.U./dL)
[2017-06-08 00:18] LABS: URINE APPEARANCE SL CLOUDY (CLEAR); URINE COLOR YELLOW (YELLOW)
[2017-06-08 00:23] LABS: URINE BACTERIA RARE (NEG); URINE EPITHELIAL CELLS 0 - 2 /hpf (0-5); URINE RBC 15 - 20 /hpf (0-2)
[2017-06-08] MEDS: Sodium Chloride 0.9% 1,000 ML IV SCH ×3 (02:37→15:20)
[2017-06-08 08:30] LABS: BASO # 0.02 K/mm3 (0.0-2.0); BASO % 0.1 % (0.0-3.0); GRAN # 14.07 (1.4-6.5); GRAN % 79.3 % (50.0-68.0); HEMOGLOBIN 10.7 g/dL (14.0-18.0); LYMPH # 1.9 (1.2-3.4); LYMPH % 10.6 % (22.0-35.0); MEAN CELL VOLUME 94.7 fl (80.0-105.0); MEAN CORPUSCULAR HEMOGLOBIN 31.7 pg (25.0-35.0); MEAN CORPUSCULAR HGB CONC 33.4 g/dl (31.0-37.0); MEAN PLATELET VOLUME 10.2 fl (7.0-11.0); MONO # 1.8 (0.1-0.6); RBC 3.38 10^6/uL (3.5-6.1); RED CELL DISTRIBUTION WIDTH 14.1 % (11.5-14.5); WHITE BLOOD COUNT 17.8 10^3/ul (4.5-11.0)
[2017-06-08 08:42] LABS: ALB/GLOB RATIO 0.9 (1.1-1.8); ALBUMIN 2.8 g/dL (3.0-4.8); CALCIUM 8.6 mg/dL (8.4-10.5); MAGNESIUM 1.8 mg/dL (1.7-2.2)
[2017-06-08] MEDS: Enoxaparin 30 mg Syringe SC SCH (09:22)
[2017-06-08] MEDS: Vancomycin 1gm in NS 250ml 1 GM/250 ML BAG IVPB SCH (09:22)
[2017-06-08] MEDS ORDERED: Vancomycin 1gm in NS 250ml 1 GM/250 ML BAG IVPB SCH (10:00)
--- NOTE | 2017-06-08 14:17 | CP.PCM.PN ---
<Rosalie Hutson - Last Filed: 06/08/17 14:10> Subjective - Date & Time of Evaluation Date of Evaluation: 06/08/17 Time of Evaluation: 14:10 - Subjective Subjective: Rosalie Hutson, PGY1, Medicine Progress Note for Dr Box: Pt seen and examined at bedside. Pt febrile overnight at 1 AM, 101.8F, given tylenol 650 mg with resolution of fever. Denies changes in mentation status, chills, nausea, vomiting, abdominal pain, leg swelling. Objective - Vital Signs/Intake and Output Vital Signs (last 24 hours): Temp Pulse Resp BP Pulse Ox 98.8 F 64 18 133/73 95 06/08/17 08:01 06/08/17 09:28 06/08/17 08:01 06/08/17 09:28 06/08/17 08:01 Intake and Output: 06/08/17 06/08/17 06:59 18:59 Intake Total 1140 Output Total 500 Balance 640 - Medications Medications: Current Medications Acetaminophen (Tylenol 325mg Tab) 650 mg PO Q4H PRN PRN Reason: Fever >100.4 F Last Admin: 06/08/17 01:07 Dose: 650 mg Atorvastatin Calcium (Lipitor) 20 mg PO DIN [facility] Carvedilol (Coreg) 12.5 mg PO DAILY [facility] Last Admin: 06/08/17 09:23 Dose: 12.5 mg Enoxaparin Sodium (Lovenox) 30 mg SC DAILY [facility] PRN Reason: Protocol Last Admin: 06/08/17 09:22 Dose: 30 mg Famotidine (Pepcid) 20 mg PO DAILY [facility] Sodium Chloride (Sodium Chloride 0.9%) 1,000 mls @ 125 mls/hr IV .Q8H [facility] Last Admin: 06/08/17 06:01 Dose: 125 mls/hr Vancomycin HCl (Vancomycin 1gm) 1 gm in 250 mls @ 167 mls/hr IVPB DAILY [facility] PRN Reason: Protocol Last Admin: 06/08/17 09:22 Dose: 167 mls/hr Cefepime HCl (Maxipime 1gm) 1 gm in 100 mls @ 100 mls/hr IVPB Q24H [facility] PRN Reason: Protocol Last Admin: 06/07/17 22:12 Dose: 100 mls/hr Lisinopril (Zestril) 20 mg PO DAILY [facility] Last Admin: 06/08/17 09:28 Dose: 20 mg Ondansetron HCl (Zofran Inj) 4 mg IVP Q6H PRN PRN Reason: Nausea/Vomiting Spironolactone (Aldactone) 25 mg PO DAILY [facility] Last Admin: 06/08/17 09:23 Dose: 25 mg Zolpidem Tartrate (Ambien) 5 mg PO HS PRN PRN Reason: Insomnia - Labs Labs: 06/08/17 07:17 06/08/17 07:18 PT 16.7 SECONDS (9.4-12.5) H 06/07/17 15:49 INR 1.45 (0.93-1.08) H 06/07/17 15:49 APTT 28.1 Seconds (25.1-36.5) 06/07/17 15:49 - Additional Findings Additional findings: - Constitutional Appears: No Acute Distress, Older Than Stated Age - Head Exam Head Exam: ATRAUMATIC, NORMOCEPHALIC - Eye Exam Eye Exam: EOMI, PERRL. absent: Conjunctival injection, Nystagmus, Periorbital swelling, Scleral icterus Pupil Exam: NORMAL ACCOMODATION, PERRL. absent: Fixed, Irregular, Unequal - ENT Exam ENT Exam: Mucous Membranes Dry - Neck Exam Neck exam: Positive for: Normal Inspection - Respiratory Exam Respiratory Exam: Clear to Auscultation Bilateral, NORMAL BREATHING PATTERN. absent: Accessory Muscle Use, Chest Wall Tenderness, Rales, Rhonchi, Wheezes, Respiratory Distress - Cardiovascular Exam Cardiovascular Exam: RRR, +S1, +S2. absent: Systolic Murmur - GI/Abdominal Exam GI & Abdominal Exam: Normal Bowel Sounds, Soft. absent: Diminished Bowel Sounds , Guarding, Organomegaly, Rebound, Rigid, Tenderness - Extremities Exam Extremities exam: Positive for: normal inspection. Negative for: calf tenderness, pedal edema - Back Exam Back exam: NORMAL INSPECTION. absent: CVA tenderness (L), CVA tenderness (R) - Neurological Exam Neurological exam: Alert, Oriented x3 - Psychiatric Exam Psychiatric exam: Normal Affect, Normal Mood - Skin Skin Exam: Dry, Normal Color, Warm Assessment and Plan - Assessment and Plan (Free Text) Assessment: 86 year old male with hx nephrolithiasis s/p ureter stent 3 weeks ago, afib, HTN , CAD, admitted for sepsis: Sepsis: - 2/2 likely complicated UTI vs pyelonephritis vs intr-abdominal source, less likely PNA or meningitis - Febrile in ED, with leukocytosis 16 with urinary complaints. - Last febrile episode at 1 AM last night. leukocytosis 17.8 today. - Renal US shows bilateral renal cysts (measuring 1.5-2 cm), nonobstructing right lower pole renal calculus. No hydronephrosis. - CXR showed mild cardiomegaly. sternal wires. no infiltrates. - IVF at 125, procal elevated 17.03, urine culture negative, pending blood culture results. - Zofran prn, c/w CLD - On renally dosed Vancomycin and Cefepime D2. Will discontinue Vancomycin. - ID and Urology consulted. F/u recs SHERIE, improving: - BUN/Cr 32/1.4 (baseline Cr 1.1-1.2) - Gentle hydration. Cont to monitor. Hx of afib: - Hold eliquis - Currently sinus rhythm - C/w home Carvedilol (Hold if HR<60 or SBP<110) Hx of HTN: - C/w home med JENN-i and carvedilol and Aldactone (hold if SBP<110) Hx of HLD: - c/w home statin Hx of Insomnia: - C/w home Radhaien ORLY to chair DVT ppx: lovenox sq GI PPX: pepcid Discussed with Dr Box. Rosalie Hutson, PGY1 <Reyes Box - Last Filed: 06/08/17 16:28> Objective - Vital Signs/Intake and Output Vital Signs (last 24 hours): Temp Pulse Resp BP Pulse Ox 98.8 F 64 18 133/73 95 06/08/17 08:01 06/08/17 09:28 06/08/17 08:01 06/08/17 09:28 06/08/17 08:01 Intake and Output: 06/08/17 06/08/17 06:59 18:59 Intake Total 1140 Output Total 500 Balance 640 - Medications Medications: Current Medications Acetaminophen (Tylenol 325mg Tab) 650 mg PO Q4H PRN PRN Reason: Fever >100.4 F Last Admin: 06/08/17 01:07 Dose: 650 mg Atorvastatin Calcium (Lipitor) 20 mg PO DIN [facility] Carvedilol (Coreg) 12.5 mg PO DAILY [facility] Last Admin: 06/08/17 09:23 Dose: 12.5 mg Enoxaparin Sodium (Lovenox) 30 mg SC DAILY [facility] PRN Reason: Protocol Last Admin: 06/08/17 09:22 Dose: 30 mg Famotidine (Pepcid) 20 mg PO DAILY [facility] Sodium Chloride (Sodium Chloride 0.9%) 1,000 mls @ 125 mls/hr IV .Q8H [facility] Last Admin: 06/08/17 15:20 Dose: 125 mls/hr Vancomycin HCl (Vancomycin 1gm) 1 gm in 250 mls @ 167 mls/hr IVPB DAILY [facility] PRN Reason: Protocol Last Admin: 06/08/17 09:22 Dose: 167 mls/hr Cefepime HCl (Maxipime 1gm) 1 gm in 100 mls @ 100 mls/hr IVPB Q24H [facility] PRN Reason: Protocol Last Admin: 06/07/17 22:12 Dose: 100 mls/hr Lisinopril (Zestril) 20 mg PO DAILY [facility] Last Admin: 06/08/17 09:28 Dose: 20 mg Ondansetron HCl (Zofran Inj) 4 mg IVP Q6H PRN PRN Reason: Nausea/Vomiting Spironolactone (Aldactone) 25 mg PO DAILY [facility] Last Admin: 06/08/17 09:23 Dose: 25 mg Zolpidem Tartrate (Ambien) 5 mg PO HS PRN PRN Reason: Insomnia - Labs Labs: 06/08/17 07:17 06/08/17 07:18 PT 16.7 SECONDS (9.4-12.5) H 06/07/17 15:49 INR 1.45 (0.93-1.08) H 06/07/17 15:49 APTT 28.1 Seconds (25.1-36.5) 06/07/17 15:49 Attending/Attestation - Attestation I have personally seen and examined this patient.: Yes I have fully participated in the care of the patient.: Yes I have reviewed all pertinent clinical information, including history, physical exam and plan: Yes Notes (Text): 06/08/17 16:26 Patient was seen and examined with medical assistant.Family is at bed side.Agreed with assessment and plan. Patient is feeling better today.He is afebrile.His mental status has improved.He is feeling at his base line. Blood cultures are pending at this time.We will continue cefepime. ID evaluation is appreciated. Management plan was discussed in detail with patient and family.Education was provided.
--- NOTE | 2017-06-08 19:56 | CP.PCM.PN ---
Subjective - Date & Time of Evaluation Date of Evaluation: 06/08/17 Time of Evaluation: 13:15 - Subjective Subjective: Infectious Disease Follow Up: June 08, 2017 86 yo male with recent placement of ureter stent [address] Werner. History of nephrolithiasis, Atrial fibrillation, hypertension, and coronary artery disease. There was also a history of colon cancer that required colon resection. The patient developed a low grade temp, chills, and nausea. The patient has been having increased urinary frequency, poor appetite , and dark urine. In ER the patient had leukocytosis and low grade fevers. Urinalysis sent and cultures pending. Cultures so far are negative. Leukocytosis of 17.8. Procalcitonin of 17.03. Objective - Vital Signs/Intake and Output Vital Signs (last 24 hours): Temp Pulse Resp BP Pulse Ox 102 F H 67 20 150/80 95 06/08/17 16:19 06/08/17 16:00 06/08/17 16:00 06/08/17 16:00 06/08/17 16:00 - Medications Medications: Current Medications Acetaminophen (Tylenol 325mg Tab) 650 mg PO Q4H PRN PRN Reason: Fever >100.4 F Last Admin: 06/08/17 16:19 Dose: 650 mg Atorvastatin Calcium (Lipitor) 20 mg PO DIN [facility] Last Admin: 06/08/17 17:41 Dose: 20 mg Carvedilol (Coreg) 12.5 mg PO DAILY [facility] Last Admin: 06/08/17 09:23 Dose: 12.5 mg Enoxaparin Sodium (Lovenox) 30 mg SC DAILY [facility] PRN Reason: Protocol Last Admin: 06/08/17 09:22 Dose: 30 mg Famotidine (Pepcid) 20 mg PO DAILY [facility] Sodium Chloride (Sodium Chloride 0.9%) 1,000 mls @ 125 mls/hr IV .Q8H [facility] Last Admin: 06/08/17 15:20 Dose: 125 mls/hr Vancomycin HCl (Vancomycin 1gm) 1 gm in 250 mls @ 167 mls/hr IVPB DAILY [facility] PRN Reason: Protocol Last Admin: 06/08/17 09:22 Dose: 167 mls/hr Cefepime HCl (Maxipime 1gm) 1 gm in 100 mls @ 100 mls/hr IVPB Q24H [facility] PRN Reason: Protocol Last Admin: 06/07/17 22:12 Dose: 100 mls/hr Lisinopril (Zestril) 20 mg PO DAILY [facility] Last Admin: 06/08/17 09:28 Dose: 20 mg Ondansetron HCl (Zofran Inj) 4 mg IVP Q6H PRN PRN Reason: Nausea/Vomiting Spironolactone (Aldactone) 25 mg PO DAILY [facility] Last Admin: 06/08/17 09:23 Dose: 25 mg Zolpidem Tartrate (Ambien) 5 mg PO HS PRN PRN Reason: Insomnia - Labs Labs: 06/08/17 07:17 06/08/17 07:18 PT 16.7 SECONDS (9.4-12.5) H 06/07/17 15:49 INR 1.45 (0.93-1.08) H 06/07/17 15:49 APTT 28.1 Seconds (25.1-36.5) 06/07/17 15:49 - Constitutional Appears: Non-toxic, No Acute Distress - Head Exam Head Exam: ATRAUMATIC, NORMOCEPHALIC - Eye Exam Eye Exam: EOMI, PERRL Pupil Exam: NORMAL ACCOMODATION, PERRL - ENT Exam ENT Exam: Mucous Membranes Moist, Normal External Ear Exam, TM's Normal Bilaterally - Neck Exam Neck Exam: Full ROM, Normal Inspection - Respiratory Exam Respiratory Exam: Clear to Ausculation Bilateral, NORMAL BREATHING PATTERN. absent: Rales, Rhonchi, Wheezes - Cardiovascular Exam Cardiovascular Exam: REGULAR RHYTHM, RRR, +S1, +S2 - GI/Abdominal Exam GI & Abdominal Exam: Soft, Normal Bowel Sounds. absent: Distended, Tenderness - Extremities Exam Extremities Exam: Full ROM, Normal Inspection - Neurological Exam Neurological Exam: Alert, Awake, CN II-XII Intact, Oriented x3 - Psychiatric Exam Psychiatric exam: Normal Affect, Normal Mood - Skin Skin Exam: Intact, Normal Color Assessment and Plan - Assessment and Plan (Free Text) Assessment: 86 yo male with recent stent placement for nephrolithiasis presented with low grade fevers, chills, and increased urinary frequency. Stover cultures sent. Suspect UTI and possible urosepsis. Leukocytosis of 16.0. Creatinine of 1.7 at this time. Renal insufficiency unclear if secondary to acute kidney injury but prior laboratories indicate that the patient has some level of CKD. Continue on Vancomycin and Cefepime for now... would not use Zosyn with Vancomycin in a patient with borderline renal function. Supportive care. Cultures pending. procalcitonin of 17.03. WBC increased to 17.8. Still having fevers up to 102 F. Negative influenza. May need to obtain Influenza Antibody titers. Thank you for allowing me to participate in the care of the patient, we will follow with you.
[2017-06-08] MEDS: Cefepime 1gm in NS 100ml 1 GM/100 ML BAG IVPB SCH (21:20)
[2017-06-09] MEDS: Sodium Chloride 0.9% 1,000 ML IV SCH ×2 (05:53→15:15)
[2017-06-09 06:49] LABS: BASO # 0.01 K/mm3 (0.0-2.0); BASO % 0.1 % (0.0-3.0); EOS # 0.1 (0.0-0.7); EOS % 0.9 % (1.5-5.0); GRAN # 9.74 (1.4-6.5); GRAN % 75.3 % (50.0-68.0); HEMOGLOBIN 10.4 g/dL (14.0-18.0); LYMPH # 1.8 (1.2-3.4); LYMPH % 13.6 % (22.0-35.0); MEAN CELL VOLUME 96.4 fl (80.0-105.0); MEAN CORPUSCULAR HEMOGLOBIN 30.9 pg (25.0-35.0); MEAN PLATELET VOLUME 9.8 fl (7.0-11.0); MONO # 1.3 (0.1-0.6); MONO % 10.1 % (1.0-6.0); RBC 3.37 10^6/uL (3.5-6.1); RED CELL DISTRIBUTION WIDTH 14.2 % (11.5-14.5); WHITE BLOOD COUNT 12.9 10^3/ul (4.5-11.0)
[2017-06-09 07:39] LABS: ALB/GLOB RATIO 0.9 (1.1-1.8); ALT/SGPT 52 U/L (7-56); AST/SGOT 40 U/L (17-59); BLOOD UREA NITROGEN 26 mg/dL (7-21); CALCIUM 8.3 mg/dL (8.4-10.5); GFR AFRICAN-AMERICAN > 60; GFR NON-AFRICAN AMERICAN 57; MAGNESIUM 1.9 mg/dL (1.7-2.2)
--- NOTE | 2017-06-09 08:42 | PN ---
DATE: 06/08/2017 SUBJECTIVE: The patient was admitted last night after he had a ureteroscopy with laser lithotripsy and stent removal and replacement. The patient was at home having fever and shaking chills. He was admitted for possible sepsis. He is currently feeling better no further shaking chills. He did have a fever this afternoon; however, his cultures have been negative. Fever resolved with Tylenol. The patient is seen in his room. He is awake and alert and answering questions. His abdomen is benign. There is no costovertebral angle tenderness. There is no rebound or guarding. The patient had a renal ultrasound done yesterday, which showed no hydronephrosis. There were some non-obstructing right lower pole calculus. There were simple cysts. Chest x-ray showed no infiltrate or pneumonia. LABORATORY EXAMINATION: The patient's WBC count is elevated at 17.8, procalcitonin was elevated at 17.03, creatinine 1.4, today is improved, alk phos elevated at 166. Blood cultures there was no growth after 24 hours. Gram stains are pending. Urine culture was no growth less than 1000 cfu/mL. IMPRESSION AND PLAN: An 86-year-old male with questionable sepsis after ureteroscopy. The plan for now is to continue the patient on IV antibiotics. He has a stent in place. Plan will be to continue IV antibiotics. Check white count tomorrow. If the patient continues to spike fevers or persistent white count I would plan on a CT scan of the abdomen and pelvis tomorrow. Check final blood cultures tomorrow and re-culture if the patient spikes fever. Nikos Cole MD
[2017-06-09] MEDS: Enoxaparin 30 mg Syringe SC SCH (09:31)
--- NOTE | 2017-06-09 18:46 | CP.PCM.PN ---
Subjective - Date & Time of Evaluation Date of Evaluation: 06/09/17 Time of Evaluation: 17:15 - Subjective Subjective: Infectious Disease Follow Up: June 09, 2017 86 yo male with recent placement of ureter stent [address] Werner. History of nephrolithiasis, Atrial fibrillation, hypertension, and coronary artery disease. There was also a history of colon cancer that required colon resection. The patient developed a low grade temp, chills, and nausea. The patient has been having increased urinary frequency, poor appetite , and dark urine. In ER the patient had leukocytosis and low grade fevers. Urinalysis sent and cultures pending. Cultures so far are negative. Leukocytosis of 12.9 from 17.8. Procalcitonin of 17.03. Stent removed by Dr. Cole today. Objective - Vital Signs/Intake and Output Vital Signs (last 24 hours): Temp Pulse Resp BP Pulse Ox 100.9 F H 68 18 166/84 H 94 L 06/09/17 17:29 06/09/17 16:00 06/09/17 16:00 06/09/17 16:00 06/09/17 16:00 Intake and Output: 06/09/17 06/09/17 06:59 18:59 Intake Total 660 600 Output Total 1050 200 Balance -390 400 - Medications Medications: Current Medications Acetaminophen (Tylenol 325mg Tab) 650 mg PO Q4H PRN PRN Reason: Fever >100.4 F Last Admin: 06/09/17 17:29 Dose: 650 mg Apixaban (Eliquis) 5 mg PO BID [facility] PRN Reason: Protocol Last Admin: 06/09/17 17:29 Dose: 5 mg Atorvastatin Calcium (Lipitor) 20 mg PO DIN [facility] Last Admin: 06/09/17 17:29 Dose: 20 mg Carvedilol (Coreg) 12.5 mg PO DAILY [facility] Last Admin: 06/09/17 09:32 Dose: 12.5 mg Enoxaparin Sodium (Lovenox) 30 mg SC DAILY [facility] PRN Reason: Protocol Last Admin: 06/09/17 09:31 Dose: 30 mg Famotidine (Pepcid) 20 mg PO DAILY [facility] Last Admin: 06/09/17 09:32 Dose: 20 mg Sodium Chloride (Sodium Chloride 0.9%) 1,000 mls @ 125 mls/hr IV .Q8H [facility] Last Admin: 06/09/17 15:15 Dose: 125 mls/hr Vancomycin HCl (Vancomycin 1gm) 1 gm in 250 mls @ 167 mls/hr IVPB DAILY [facility] PRN Reason: Protocol Last Admin: 06/08/17 09:22 Dose: 167 mls/hr Cefepime HCl (Maxipime 1gm) 1 gm in 100 mls @ 100 mls/hr IVPB Q24H [facility] PRN Reason: Protocol Last Admin: 06/08/17 21:20 Dose: 100 mls/hr Lisinopril (Zestril) 20 mg PO DAILY [facility] Last Admin: 06/09/17 09:32 Dose: 20 mg Ondansetron HCl (Zofran Inj) 4 mg IVP Q6H PRN PRN Reason: Nausea/Vomiting Spironolactone (Aldactone) 25 mg PO DAILY [facility] Last Admin: 06/09/17 09:32 Dose: 25 mg Trazodone HCl (Desyrel) 50 mg PO HS [facility] - Labs Labs: 06/09/17 06:00 06/09/17 06:00 PT 16.7 SECONDS (9.4-12.5) H 06/07/17 15:49 INR 1.45 (0.93-1.08) H 06/07/17 15:49 APTT 28.1 Seconds (25.1-36.5) 06/07/17 15:49 - Constitutional Appears: Non-toxic, No Acute Distress - Head Exam Head Exam: ATRAUMATIC, NORMOCEPHALIC - Eye Exam Eye Exam: EOMI, PERRL Pupil Exam: NORMAL ACCOMODATION, PERRL - ENT Exam ENT Exam: Mucous Membranes Moist, Normal External Ear Exam, TM's Normal Bilaterally - Neck Exam Neck Exam: Full ROM, Normal Inspection - Respiratory Exam Respiratory Exam: Clear to Ausculation Bilateral, NORMAL BREATHING PATTERN. absent: Rales, Rhonchi, Wheezes - Cardiovascular Exam Cardiovascular Exam: REGULAR RHYTHM, RRR, +S1, +S2 - GI/Abdominal Exam GI & Abdominal Exam: Soft, Normal Bowel Sounds. absent: Distended, Tenderness - Extremities Exam Extremities Exam: Full ROM, Normal Inspection - Neurological Exam Neurological Exam: Alert, Awake, CN II-XII Intact, Oriented x3 - Psychiatric Exam Psychiatric exam: Normal Affect, Normal Mood - Skin Skin Exam: Intact, Normal Color Assessment and Plan - Assessment and Plan (Free Text) Assessment: 86 yo male with recent stent placement for nephrolithiasis presented with low grade fevers, chills, and increased urinary frequency. Stover cultures sent. Suspect UTI and possible urosepsis. Leukocytosis of 16.0. Creatinine of 1.7 at this time. Renal insufficiency unclear if secondary to acute kidney injury but prior laboratories indicate that the patient has some level of CKD. Continue on Vancomycin and Cefepime for now... would not use Zosyn with Vancomycin in a patient with borderline renal function. Supportive care. Cultures pending. procalcitonin of 17.03. WBC improved to 12.9 from 17.8. Still having fevers up to 100.9 F. Negative influenza. May need to obtain Influenza Antibody titers. Check procalcitonin values again. Cultures negative to date. Thank you for allowing me to participate in the care of the patient, we will follow with you.
--- NOTE | 2017-06-09 21:35 | CP.PCM.PN ---
<Rosalie Hutson - Last Filed: 06/09/17 21:31> Subjective - Date & Time of Evaluation Date of Evaluation: 06/09/17 Time of Evaluation: 11:30 - Subjective Subjective: Rosalie Hutson, PGY1, Medicine Progress Note for Dr Box: Pt seen and examined at bedside. Pt febrile yesterday at 4 PM, 102 F. Pt however, received Tylenol overnight per nursing staff, for body aches. Staff advised to limit Tylenol use for fever. As per staff, pt received Ambien overnight and was having visual hallucinations overnight. This AM, pt denies fever, chills, nausea, vomiting, abdominal pain, leg swelling. Objective - Vital Signs/Intake and Output Vital Signs (last 24 hours): Temp Pulse Resp BP Pulse Ox 100.9 F H 68 18 166/84 H 94 L 06/09/17 17:29 06/09/17 16:00 06/09/17 16:00 06/09/17 16:00 06/09/17 16:00 Intake and Output: 06/09/17 06/10/17 18:59 06:59 Intake Total 600 Output Total 200 Balance 400 - Medications Medications: Current Medications Acetaminophen (Tylenol 325mg Tab) 650 mg PO Q4H PRN PRN Reason: Fever >100.4 F Last Admin: 06/09/17 17:29 Dose: 650 mg Apixaban (Eliquis) 5 mg PO BID [facility] PRN Reason: Protocol Last Admin: 06/09/17 17:29 Dose: 5 mg Atorvastatin Calcium (Lipitor) 20 mg PO DIN [facility] Last Admin: 06/09/17 17:29 Dose: 20 mg Carvedilol (Coreg) 12.5 mg PO DAILY [facility] Last Admin: 06/09/17 09:32 Dose: 12.5 mg Enoxaparin Sodium (Lovenox) 30 mg SC DAILY [facility] PRN Reason: Protocol Last Admin: 06/09/17 09:31 Dose: 30 mg Famotidine (Pepcid) 20 mg PO DAILY [facility] Last Admin: 06/09/17 09:32 Dose: 20 mg Sodium Chloride (Sodium Chloride 0.9%) 1,000 mls @ 125 mls/hr IV .Q8H [facility] Last Admin: 06/09/17 15:15 Dose: 125 mls/hr Cefepime HCl (Maxipime 1gm) 1 gm in 100 mls @ 100 mls/hr IVPB Q24H [facility] PRN Reason: Protocol Last Admin: 06/08/17 21:20 Dose: 100 mls/hr Lisinopril (Zestril) 20 mg PO DAILY [facility] Last Admin: 06/09/17 09:32 Dose: 20 mg Ondansetron HCl (Zofran Inj) 4 mg IVP Q6H PRN PRN Reason: Nausea/Vomiting Spironolactone (Aldactone) 25 mg PO DAILY [facility] Last Admin: 06/09/17 09:32 Dose: 25 mg Trazodone HCl (Desyrel) 50 mg PO HS [facility] - Labs Labs: 06/09/17 06:00 06/09/17 06:00 PT 16.7 SECONDS (9.4-12.5) H 06/07/17 15:49 INR 1.45 (0.93-1.08) H 06/07/17 15:49 APTT 28.1 Seconds (25.1-36.5) 06/07/17 15:49 - Additional Findings Additional findings: - Constitutional Appears: No Acute Distress, Older Than Stated Age - Head Exam Head Exam: ATRAUMATIC, NORMOCEPHALIC - Eye Exam Eye Exam: EOMI, PERRL. absent: Conjunctival injection, Nystagmus, Periorbital swelling, Scleral icterus Pupil Exam: NORMAL ACCOMODATION, PERRL. absent: Fixed, Irregular, Unequal - ENT Exam ENT Exam: Mucous Membranes Dry - Neck Exam Neck exam: Positive for: Normal Inspection - Respiratory Exam Respiratory Exam: Clear to Auscultation Bilateral, NORMAL BREATHING PATTERN. absent: Accessory Muscle Use, Chest Wall Tenderness, Rales, Rhonchi, Wheezes, Respiratory Distress - Cardiovascular Exam Cardiovascular Exam: RRR, +S1, +S2. absent: Systolic Murmur - GI/Abdominal Exam GI & Abdominal Exam: Normal Bowel Sounds, Soft. absent: Diminished Bowel Sounds , Guarding, Organomegaly, Rebound, Rigid, Tenderness - Extremities Exam Extremities exam: Positive for: normal inspection. Negative for: calf tenderness, pedal edema - Back Exam Back exam: NORMAL INSPECTION. absent: CVA tenderness (L), CVA tenderness (R) - Neurological Exam Neurological exam: Alert, Oriented x3 - Psychiatric Exam Psychiatric exam: Normal Affect, Normal Mood - Skin Skin Exam: Dry, Normal Color, Warm Assessment and Plan - Assessment and Plan (Free Text) Assessment: 86 year old male with hx nephrolithiasis s/p ureter stent 3 weeks ago, afib, HTN , CAD, admitted for sepsis: Sepsis: - 2/2 likely complicated UTI vs intra-abdominal source, less likely oyelonephritis vs PNA or meningitis - Febrile in ED, with leukocytosis 16 with urinary complaints. - Last febrile episode at 4 PM yesterday evening. Leukocytosis improving today. - Renal US shows bilateral renal cysts (measuring 1.5-2 cm), nonobstructing right lower pole renal calculus. No hydronephrosis. - CXR showed mild cardiomegaly. sternal wires. no infiltrates. - IVF at 125, procal elevated 17.03, urine culture negative, blood culture negative. - Zofran prn, c/w HHD. - On Cefepime D3. Discontinued Vancomycin. - ID and Urology consulted. F/u recs - Ureteral stent removed by Dr Cole. - If pt spikes a temperature, will obtain CT abdomen/pelvis. SHERIE, improving: - BUN/Cr 26/1.2 (baseline Cr 1.1-1.2) - Gentle hydration. Cont to monitor. Hx of afib: - resumed eliquis 5 mg PO BID - verified from [facility] at [place], [place]. - Currently sinus rhythm - C/w home Carvedilol (Hold if HR<60 or SBP<110) Hx of HTN: - C/w home med JENN-i and carvedilol and Aldactone (hold if SBP<110) Hx of HLD: - c/w home statin Hx of Insomnia: - Start Trazodone - QTc 471 ms on EKG - Hold home Ambien ORLY to chair DVT ppx: lovenox sq GI PPX: pepcid Discussed with Dr Box. Rosalie Hutson, PGY1 <Reyes Box - Last Filed: 06/10/17 08:40> Objective - Vital Signs/Intake and Output Vital Signs (last 24 hours): Temp Pulse Resp BP Pulse Ox 98.9 F 84 20 157/79 H 98 06/10/17 07:30 06/10/17 07:30 06/10/17 07:30 06/10/17 07:30 06/10/17 07:30 Intake and Output: 06/10/17 06/10/17 06:59 18:59 Intake Total 600 1100 Output Total 800 Balance -200 1100 - Medications Medications: Current Medications Acetaminophen (Tylenol 325mg Tab) 650 mg PO Q4H PRN PRN Reason: Fever >100.4 F Last Admin: 06/09/17 17:29 Dose: 650 mg Apixaban (Eliquis) 5 mg PO BID [facility] PRN Reason: Protocol Last Admin: 06/09/17 17:29 Dose: 5 mg Atorvastatin Calcium (Lipitor) 20 mg PO DIN [facility] Last Admin: 06/09/17 17:29 Dose: 20 mg Carvedilol (Coreg) 12.5 mg PO DAILY [facility] Last Admin: 06/09/17 09:32 Dose: 12.5 mg Enoxaparin Sodium (Lovenox) 30 mg SC DAILY [facility] PRN Reason: Protocol Last Admin: 06/09/17 09:31 Dose: 30 mg Famotidine (Pepcid) 20 mg PO DAILY [facility] Last Admin: 06/09/17 09:32 Dose: 20 mg Sodium Chloride (Sodium Chloride 0.9%) 1,000 mls @ 125 mls/hr IV .Q8H [facility] Last Admin: 06/10/17 08:00 Dose: Not Given Cefepime HCl (Maxipime 1gm) 1 gm in 100 mls @ 100 mls/hr IVPB Q24H [facility] PRN Reason: Protocol Last Admin: 06/09/17 21:45 Dose: 100 mls/hr Lisinopril (Zestril) 20 mg PO DAILY [facility] Last Admin: 06/09/17 09:32 Dose: 20 mg Ondansetron HCl (Zofran Inj) 4 mg IVP Q6H PRN PRN Reason: Nausea/Vomiting Spironolactone (Aldactone) 25 mg PO DAILY [facility] Last Admin: 06/09/17 09:32 Dose: 25 mg Trazodone HCl (Desyrel) 50 mg PO HS [facility] Last Admin: 06/09/17 21:46 Dose: 50 mg - Labs Labs: 06/10/17 06:00 06/10/17 06:00 PT 16.7 SECONDS (9.4-12.5) H 06/07/17 15:49 INR 1.45 (0.93-1.08) H 06/07/17 15:49 APTT 28.1 Seconds (25.1-36.5) 06/07/17 15:49 Attending/Attestation - Attestation I have personally seen and examined this patient.: Yes I have fully participated in the care of the patient.: Yes I have reviewed all pertinent clinical information, including history, physical exam and plan: Yes Notes (Text): 06/10/17 08:38 Patient was seen and examined with medical supply technician.Family is at bed side.Agreed with assessment and plan. Patient is feeling better today.He is afebrile this morning.His mental status has improved.Patient is still having intermittent fever.Procalcitonin level is high. Blood cultures are pending at this time.We will continue IV antibiotics. If Fever will not improve, will get CT scan of abdomen and Pelvis. Management plan was discussed in detail with patient and family.Education was provided. 06/10/17 08:39
[2017-06-09] MEDS: Cefepime 1gm in NS 100ml 1 GM/100 ML BAG IVPB SCH (21:45)
[2017-06-10] MEDS: Sodium Chloride 0.9% 1,000 ML IV SCH ×3 (03:02→08:00)
[2017-06-10 07:13] LABS: BASO # 0.01 K/mm3 (0.0-2.0); BASO % 0.1 % (0.0-3.0); EOS % 0.2 % (1.5-5.0); GRAN # 11.06 (1.4-6.5); GRAN % 81.2 % (50.0-68.0); HEMOGLOBIN 11.3 g/dL (14.0-18.0); LYMPH # 1.3 (1.2-3.4); LYMPH % 9.5 % (22.0-35.0); MEAN CELL VOLUME 97.5 fl (80.0-105.0); MEAN CORPUSCULAR HEMOGLOBIN 31.5 pg (25.0-35.0); MEAN CORPUSCULAR HGB CONC 32.3 g/dl (31.0-37.0); MEAN PLATELET VOLUME 10.4 fl (7.0-11.0); MONO # 1.2 (0.1-0.6); RBC 3.59 10^6/uL (3.5-6.1); RED CELL DISTRIBUTION WIDTH 14.2 % (11.5-14.5); WHITE BLOOD COUNT 13.6 10^3/ul (4.5-11.0)
[2017-06-10 07:45] LABS: ALB/GLOB RATIO 0.9 (1.1-1.8); ALBUMIN 3.5 g/dL (3.0-4.8); ALT/SGPT 61 U/L (7-56); AST/SGOT 55 U/L (17-59); BLOOD UREA NITROGEN 27 mg/dL (7-21); CALCIUM 8.8 mg/dL (8.4-10.5); GFR AFRICAN-AMERICAN > 60; GFR NON-AFRICAN AMERICAN > 60; MAGNESIUM 2.1 mg/dL (1.7-2.2)
--- NOTE | 2017-06-10 09:04 | PN ---
DATE: 06/09/2017 SUBJECTIVE: The patient is seen in his room at [facility]. He is awake, alert. OBJECTIVE: GENERAL: He is in no acute distress. VITAL SIGNS: He is afebrile. Temperature was 98.9, BP 152/83, respirations 22. ABDOMEN: Benign. LABORATORY DATA: His WBC count came down from 17.8-12.9. The patient has a ureteral stent in place with a string, I removed the stent without any difficulty. PLAN: Will be to continue observation today. If the patient does not spike fever or have any further pain, he can likely go home tomorrow on oral antibiotics as per ID recommendation. Nikos Cole MD
[2017-06-10] MEDS: Enoxaparin 30 mg Syringe SC SCH (10:15)
--- NOTE | 2017-06-10 11:34 | CP.PCM.PN ---
<Rosalie Hutson - Last Filed: 06/10/17 11:58> Subjective - Date & Time of Evaluation Date of Evaluation: 06/10/17 Time of Evaluation: 11:59 - Subjective Subjective: Rosalie Hutson, PGY1, Medicine Progress Note for Dr Box: Pt seen and examined at bedside. Pt had low grade temp yesterday afternoon at 6 PM, 100.9 , given Tylenol. This AM, pt OOB to chair. Denies fever, chills, nausea, vomiting, abdominal pain, leg swelling, urinary discomfort. Complain of mild sore throat, denies cough. Objective - Vital Signs/Intake and Output Vital Signs (last 24 hours): Temp Pulse Resp BP Pulse Ox 98.9 F 84 20 155/89 H 98 06/10/17 07:30 06/10/17 07:30 06/10/17 07:30 06/10/17 10:18 06/10/17 07:30 Intake and Output: 06/10/17 06/10/17 06:59 18:59 Intake Total 600 1100 Output Total 800 Balance -200 1100 - Medications Medications: Current Medications Acetaminophen (Tylenol 325mg Tab) 650 mg PO Q4H PRN PRN Reason: Fever >100.4 F Last Admin: 06/09/17 17:29 Dose: 650 mg Apixaban (Eliquis) 5 mg PO BID [facility] PRN Reason: Protocol Last Admin: 06/10/17 10:14 Dose: 5 mg Atorvastatin Calcium (Lipitor) 20 mg PO DIN [facility] Last Admin: 06/09/17 17:29 Dose: 20 mg Carvedilol (Coreg) 12.5 mg PO DAILY [facility] Last Admin: 06/10/17 10:15 Dose: 12.5 mg Enoxaparin Sodium (Lovenox) 30 mg SC DAILY [facility] PRN Reason: Protocol Last Admin: 06/10/17 10:15 Dose: 30 mg Famotidine (Pepcid) 20 mg PO DAILY [facility] Last Admin: 06/10/17 10:14 Dose: 20 mg Sodium Chloride (Sodium Chloride 0.9%) 1,000 mls @ 125 mls/hr IV .Q8H [facility] Last Admin: 06/10/17 08:00 Dose: Not Given Cefepime HCl (Maxipime 1gm) 1 gm in 100 mls @ 100 mls/hr IVPB Q24H [facility] PRN Reason: Protocol Last Admin: 06/09/17 21:45 Dose: 100 mls/hr Lisinopril (Zestril) 20 mg PO DAILY [facility] Last Admin: 06/10/17 10:14 Dose: 20 mg Ondansetron HCl (Zofran Inj) 4 mg IVP Q6H PRN PRN Reason: Nausea/Vomiting Spironolactone (Aldactone) 25 mg PO DAILY [facility] Last Admin: 06/10/17 10:14 Dose: 25 mg Trazodone HCl (Desyrel) 50 mg PO HS [facility] Last Admin: 06/09/17 21:46 Dose: 50 mg - Labs Labs: 06/10/17 06:00 06/10/17 06:00 PT 16.7 SECONDS (9.4-12.5) H 06/07/17 15:49 INR 1.45 (0.93-1.08) H 06/07/17 15:49 APTT 28.1 Seconds (25.1-36.5) 06/07/17 15:49 - Constitutional Appears: Non-toxic, No Acute Distress, Older Than Stated Age - Head Exam Head Exam: ATRAUMATIC, NORMOCEPHALIC - Eye Exam Eye Exam: EOMI, PERRL. absent: Conjunctival injection, Nystagmus, Scleral icterus Pupil Exam: NORMAL ACCOMODATION, PERRL - ENT Exam ENT Exam: Mucous Membranes Moist Additional comments: no erythematous pharynx or oral thrush noted. - Neck Exam Neck Exam: Full ROM - Respiratory Exam Respiratory Exam: Clear to Ausculation Bilateral. absent: Accessory Muscle Use , Chest Wall Tenderness, Prolonged Expiratory Phase, Rhonchi, Wheezes, Respiratory Distress - Cardiovascular Exam Cardiovascular Exam: RRR. absent: +S1, +S2, Murmur - GI/Abdominal Exam GI & Abdominal Exam: Soft, Normal Bowel Sounds. absent: Distended, Firm, Guarding, Rigid, Tenderness, Mass, Organomegaly - Extremities Exam Extremities Exam: Normal Inspection. absent: Calf Tenderness, Pedal Edema - Back Exam Back Exam: NORMAL INSPECTION. absent: CVA tenderness (L), CVA tenderness (R) - Neurological Exam Neurological Exam: Alert, Awake, Oriented x3 - Psychiatric Exam Psychiatric exam: Normal Affect, Normal Mood - Skin Skin Exam: Dry, Normal Color, Warm Assessment and Plan - Assessment and Plan (Free Text) Assessment: 86 year old male with hx nephrolithiasis s/p ureter stent 3 weeks ago, afib, HTN , CAD, admitted for sepsis: Sepsis: - 2/2 likely complicated UTI vs intra-abdominal source, less likely pyelonephritis vs PNA or meningitis - Febrile in ED, with leukocytosis 16 with urinary complaints. - Last febrile episode at 4 PM yesterday evening. Leukocytosis improving today. - Renal US shows bilateral renal cysts (measuring 1.5-2 cm), nonobstructing right lower pole renal calculus. No hydronephrosis. - CXR showed mild cardiomegaly. sternal wires. no infiltrates. - IVF at 125, procal elevated 17.03, urine culture negative, blood culture negative. - Zofran prn, c/w HHD. - On Cefepime D4. Discontinued Vancomycin. - ID and Urology consulted. F/u recs - Ureteral stent removed by Dr Cole 06/09. - CT abd/pelvis pending read. - If pt is afebrile for 24 hours, can discharge tomorrow. - If pt spikes a temperature, will obtain CT abdomen/pelvis. SHERIE, improving: - BUN/Cr 27/1.1 (baseline Cr 1.1-1.2) - Cont to monitor. Hx of afib: - C/w eliquis 5 mg PO BID - verified from [facility] at [place], [place]. - Currently sinus rhythm - C/w home Carvedilol (Hold if HR<60 or SBP<110) Hx of HTN: - C/w home med JENN-i and carvedilol and Aldactone (hold if SBP<110) Hx of HLD: - c/w home statin Hx of Insomnia: - C/w Trazodone - QTc 471 ms on EKG - Hold home Ambien OOB to chair. PT eval. DVT ppx: lovenox sq GI PPX: pepcid Discussed with Dr Box. Rosalie Hutson, PGY1 <Reyes Box - Last Filed: 06/11/17 15:14> Objective - Vital Signs/Intake and Output Vital Signs (last 24 hours): Temp Pulse Resp BP Pulse Ox 98.6 F 64 20 193/111 H 92 L 06/10/17 20:56 01/27/18 07:52 06/11/17 07:52 06/11/17 13:19 06/11/17 07:52 Intake and Output: 06/11/17 06/11/17 06:59 18:59 Intake Total 870 750 Output Total 500 250 Balance 370 500 - Medications Medications: Current Medications Acetaminophen (Tylenol 325mg Tab) 650 mg PO Q4H PRN PRN Reason: Fever >100.4 F Last Admin: 06/09/17 17:29 Dose: 650 mg Apixaban (Eliquis) 5 mg PO BID [facility] PRN Reason: Protocol Last Admin: 06/11/17 11:15 Dose: 5 mg Atorvastatin Calcium (Lipitor) 20 mg PO DIN [facility] Last Admin: 06/10/17 17:02 Dose: 20 mg Carvedilol (Coreg) 12.5 mg PO DAILY [facility] Last Admin: 06/11/17 11:14 Dose: 12.5 mg Famotidine (Pepcid) 20 mg PO DAILY [facility] Last Admin: 06/11/17 11:14 Dose: 20 mg Hydralazine HCl (Apresoline) 10 mg IVP Q6 PRN PRN Reason: Systolic Blood Pressure Last Admin: 06/11/17 13:19 Dose: 10 mg Cefepime HCl (Maxipime 1gm) 1 gm in 100 mls @ 100 mls/hr IVPB Q24H [facility] PRN Reason: Protocol Last Admin: 06/10/17 21:38 Dose: 100 mls/hr Lisinopril (Zestril) 20 mg PO DAILY [facility] Last Admin: 06/11/17 11:14 Dose: 20 mg Ondansetron HCl (Zofran Inj) 4 mg IVP Q6H PRN PRN Reason: Nausea/Vomiting Spironolactone (Aldactone) 25 mg PO DAILY [facility] Last Admin: 06/11/17 11:14 Dose: 25 mg - Labs Labs: 06/11/17 08:00 06/11/17 08:00 PT 16.7 SECONDS (9.4-12.5) H 06/07/17 15:49 INR 1.45 (0.93-1.08) H 06/07/17 15:49 APTT 28.1 Seconds (25.1-36.5) 06/07/17 15:49 Attending/Attestation - Attestation I have personally seen and examined this patient.: Yes I have fully participated in the care of the patient.: Yes I have reviewed all pertinent clinical information, including history, physical exam and plan: Yes Notes (Text): 06/11/17 15:11 Patient was seen and examined with medical records auditor.Family is at bed side.Agreed with assessment and plan. Patient is feeling better today.He is afebrile this morning.His mental status has improved.Patient is still having intermittent fever. Procalcitonin level is high.Blood cultures are negative at this time.We will continue IV antibiotics. CT scan of abdomen and Pelvis is reviewed, negative for any abscess. Patient and family is requesting his Ambien 10 mg po QHS, discussed wih PCP, we will restart on the recommendation of PCP, If no fever in 24 hour, can be discharged home. Management plan was discussed in detail with patient and family.Education was provided.
--- NOTE | 2017-06-10 11:42 | CT ---
PROCEDURE: CT Abdomen and Pelvis without intravenous contrast HISTORY: fevers, previous ureteral stent COMPARISON: None. TECHNIQUE: Unenhanced study. Neither oral nor intravenous contrast administered. Radiation dose: Total exam DLP = 630.08 mGy-cm. This CT exam was performed using one or more of the following dose reduction techniques: Automated exposure control, adjustment of the mA and/or kV according to patient size, and/or use of iterative reconstruction technique. FINDINGS: LOWER THORAX: Bilateral pleural effusions. Compressive atelectasis at the lung bases. LIVER: Unremarkable. No gross lesion or ductal dilatation. GALLBLADDER AND BILE DUCTS: Status post cholecystectomy. No abnormality is seen in the gallbladder fossa. PANCREAS: Unremarkable. No gross lesion or ductal dilatation. SPLEEN: Unremarkable. ADRENALS: Unremarkable. No mass. KIDNEYS AND URETERS: 2 mm calculus at the left ureterovesical junction with proximal hydroureter and mild hydronephrosis. No additional upper tract calculi on the left. Stable lower tract calculi on the low right. Incidental finding(s): Benign-appearing cysts bilaterally. VASCULATURE: Densely calcified mildly aneurysmal abdominal aorta. 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 The finding was seen previously. BOWEL: Unremarkable. No obstruction. No gross mural thickening. APPENDIX: Unremarkable. Normal appendix. PERITONEUM: Unremarkable. No free fluid. No free air. LYMPH NODES: Unremarkable. No enlarged lymph nodes. BLADDER: Unremarkable. REPRODUCTIVE: Unremarkable. BONES: No acute fracture. OTHER FINDINGS: None. IMPRESSION: 2 x 3 mm calculus at the left ureterovesical junction. Proximal hydroureter, hydronephrosis categorized as mild. Additional benign and/or incidental findings described above.
--- NOTE | 2017-06-10 17:09 | CP.PCM.PN ---
Subjective - Date & Time of Evaluation Date of Evaluation: 06/10/17 Time of Evaluation: 16:15 - Subjective Subjective: Infectious Disease Follow Up: June 10, 2017 86 yo male with recent placement of ureter stent [address] Werner. History of nephrolithiasis, Atrial fibrillation, hypertension, and coronary artery disease. There was also a history of colon cancer that required colon resection. The patient developed a low grade temp, chills, and nausea. The patient has been having increased urinary frequency, poor appetite , and dark urine. In ER the patient had leukocytosis and low grade fevers. Urinalysis sent and cultures pending. Cultures so far are negative. Leukocytosis of 13.6. Procalcitonin of 17.03 with repeat test sent today. Stent removed by Dr. Cole yesterday. Clinically improving. Patient wants to go home. Still had fevers last night up to 100.9 F. Objective - Vital Signs/Intake and Output Vital Signs (last 24 hours): Temp Pulse Resp BP Pulse Ox 98.9 F 84 20 155/89 H 98 06/10/17 07:30 06/10/17 07:30 06/10/17 07:30 06/10/17 10:18 06/10/17 07:30 Intake and Output: 06/10/17 06/10/17 06:59 18:59 Intake Total 600 1580 Output Total 800 Balance -200 1580 - Medications Medications: Current Medications Acetaminophen (Tylenol 325mg Tab) 650 mg PO Q4H PRN PRN Reason: Fever >100.4 F Last Admin: 06/09/17 17:29 Dose: 650 mg Apixaban (Eliquis) 5 mg PO BID [facility] PRN Reason: Protocol Last Admin: 06/10/17 10:14 Dose: 5 mg Atorvastatin Calcium (Lipitor) 20 mg PO DIN [facility] Last Admin: 06/09/17 17:29 Dose: 20 mg Carvedilol (Coreg) 12.5 mg PO DAILY [facility] Last Admin: 06/10/17 10:15 Dose: 12.5 mg Enoxaparin Sodium (Lovenox) 30 mg SC DAILY [facility] PRN Reason: Protocol Last Admin: 06/10/17 10:15 Dose: 30 mg Famotidine (Pepcid) 20 mg PO DAILY [facility] Last Admin: 06/10/17 10:14 Dose: 20 mg Cefepime HCl (Maxipime 1gm) 1 gm in 100 mls @ 100 mls/hr IVPB Q24H [facility] PRN Reason: Protocol Last Admin: 06/09/17 21:45 Dose: 100 mls/hr Lisinopril (Zestril) 20 mg PO DAILY [facility] Last Admin: 06/10/17 10:14 Dose: 20 mg Ondansetron HCl (Zofran Inj) 4 mg IVP Q6H PRN PRN Reason: Nausea/Vomiting Spironolactone (Aldactone) 25 mg PO DAILY [facility] Last Admin: 06/10/17 10:14 Dose: 25 mg Trazodone HCl (Desyrel) 50 mg PO HS [facility] Last Admin: 06/09/17 21:46 Dose: 50 mg - Labs Labs: 06/10/17 06:00 06/10/17 06:00 PT 16.7 SECONDS (9.4-12.5) H 06/07/17 15:49 INR 1.45 (0.93-1.08) H 06/07/17 15:49 APTT 28.1 Seconds (25.1-36.5) 06/07/17 15:49 - Constitutional Appears: Non-toxic, No Acute Distress - Head Exam Head Exam: ATRAUMATIC, NORMOCEPHALIC - Eye Exam Eye Exam: EOMI, PERRL Pupil Exam: NORMAL ACCOMODATION, PERRL - ENT Exam ENT Exam: Mucous Membranes Moist, Normal External Ear Exam, TM's Normal Bilaterally - Neck Exam Neck Exam: Full ROM, Normal Inspection - Respiratory Exam Respiratory Exam: Clear to Ausculation Bilateral, NORMAL BREATHING PATTERN. absent: Rales, Rhonchi, Wheezes - Cardiovascular Exam Cardiovascular Exam: REGULAR RHYTHM, RRR, +S1, +S2 - GI/Abdominal Exam GI & Abdominal Exam: Soft, Normal Bowel Sounds. absent: Distended, Tenderness - Extremities Exam Extremities Exam: Full ROM, Normal Inspection - Neurological Exam Neurological Exam: Alert, Awake, CN II-XII Intact, Oriented x3 - Psychiatric Exam Psychiatric exam: Normal Affect, Normal Mood - Skin Skin Exam: Intact, Normal Color Assessment and Plan - Assessment and Plan (Free Text) Assessment: 86 yo male with recent stent placement for nephrolithiasis presented with low grade fevers, chills, and increased urinary frequency. Stover cultures sent. Suspect UTI and possible urosepsis. Leukocytosis of 16.0. Creatinine of 1.7 at this time. Renal insufficiency unclear if secondary to acute kidney injury but prior laboratories indicate that the patient has some level of CKD. Continue on Vancomycin and Cefepime for now... would not use Zosyn with Vancomycin in a patient with borderline renal function. Supportive care. Cultures pending. procalcitonin of 17.03. WBC improved to 13.6. Still having fevers up to 100.9 F. Negative influenza. May need to obtain Influenza Antibody titers. Check procalcitonin values again results are pending for today. Cultures negative to date. Stent removal by Dr. Cole on 06/09/2017. Thank you for allowing me to participate in the care of the patient, we will follow with you.
[2017-06-10] MEDS: Cefepime 1gm in NS 100ml 1 GM/100 ML BAG IVPB SCH (21:38)
[2017-06-11] MEDS ORDERED: Potassium Phosphate 15 MMOLE in Dextrose 5% In Water 250 ML IVPB ONE (03:32)
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
[2017-06-11 08:22] LABS: BASO # 0.02 K/mm3 (0.0-2.0); BASO % 0.2 % (0.0-3.0); EOS # 0.2 (0.0-0.7); EOS % 1.7 % (1.5-5.0); GRAN # 6.1 (1.4-6.5); GRAN % 67.5 % (50.0-68.0); HEMOGLOBIN 10.7 g/dL (14.0-18.0); LYMPH # 1.9 (1.2-3.4); LYMPH % 20.6 % (22.0-35.0); MEAN CELL VOLUME 95.3 fl (80.0-105.0); MEAN CORPUSCULAR HEMOGLOBIN 31.7 pg (25.0-35.0); MEAN CORPUSCULAR HGB CONC 33.2 g/dl (31.0-37.0); MEAN PLATELET VOLUME 9.7 fl (7.0-11.0); MONO # 0.9 (0.1-0.6); RBC 3.38 10^6/uL (3.5-6.1)
[2017-06-11 08:54] LABS: ALB/GLOB RATIO 0.9 (1.1-1.8); ALBUMIN 3.2 g/dL (3.0-4.8); ALT/SGPT 63 U/L (7-56); AST/SGOT 55 U/L (17-59); BLOOD UREA NITROGEN 30 mg/dL (7-21); CALCIUM 8.8 mg/dL (8.4-10.5); GFR AFRICAN-AMERICAN > 60; GFR NON-AFRICAN AMERICAN > 60; MAGNESIUM 2.2 mg/dL (1.7-2.2)
--- NOTE | 2017-06-11 09:55 | CT ---
PROCEDURE: CT HEAD WITHOUT CONTRAST. HISTORY: Confusion COMPARISON: None available. TECHNIQUE: Axial computed tomography images were obtained through the head/brain without intravenous contrast. Radiation dose: Total exam DLP = 1043.48 mGy-cm. This CT exam was performed using one or more of the following dose reduction techniques: Automated exposure control, adjustment of the mA and/or kV according to patient size, and/or use of iterative reconstruction technique. FINDINGS: HEMORRHAGE: No intracranial hemorrhage. BRAIN: There are mild chronic microangiopathic changes. There is no mass, mass effect or abnormal extra-axial fluid collection VENTRICLES: There is moderate age-related global parenchymal volume loss and proportionate enlargement of the ventricles and cortical sulci. CALVARIUM: Unremarkable. PARANASAL SINUSES: There is mild mucosal thickening in the right frontal sinus, ethmoid air cells and left maxillary sinus. The left maxillary sinus is hypoplastic. MASTOID AIR CELLS: Predominantly clear. OTHER FINDINGS: None. IMPRESSION: No acute intracranial abnormality. Mild chronic microangiopathic changes and moderate age-related global parenchymal volume loss.
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
[2017-06-11] MEDS: Cefepime 1gm in NS 100ml 1 GM/100 ML BAG IVPB SCH (19:53)
[2017-06-12 07:57] VITALS: BP 167/80; PULSE 71; RESP 20; TEMP 98.3; O2SAT 96
[2017-06-12 07:57] LABS: BASO # 0.01 K/mm3 (0.0-2.0); BASO % 0.1 % (0.0-3.0); EOS # 0.1 (0.0-0.7); EOS % 1.1 % (1.5-5.0); GRAN # 5.19 (1.4-6.5); GRAN % 65.5 % (50.0-68.0); HEMOGLOBIN 10.9 g/dL (14.0-18.0); LYMPH # 1.9 (1.2-3.4); LYMPH % 23.4 % (22.0-35.0); MEAN CELL VOLUME 94.9 fl (80.0-105.0); MEAN CORPUSCULAR HEMOGLOBIN 31.1 pg (25.0-35.0); MEAN CORPUSCULAR HGB CONC 32.7 g/dl (31.0-37.0); MEAN PLATELET VOLUME 9.8 fl (7.0-11.0); MONO # 0.8 (0.1-0.6); MONO % 9.9 % (1.0-6.0); RBC 3.51 10^6/uL (3.5-6.1); RED CELL DISTRIBUTION WIDTH 14.1 % (11.5-14.5); WHITE BLOOD COUNT 7.9 10^3/ul (4.5-11.0)
[2017-06-12 08:33] LABS: ALB/GLOB RATIO 0.9 (1.1-1.8); ALBUMIN 3.2 g/dL (3.0-4.8); ALT/SGPT 63 U/L (7-56); AST/SGOT 60 U/L (17-59); BLOOD UREA NITROGEN 27 mg/dL (7-21); GFR AFRICAN-AMERICAN > 60; GFR NON-AFRICAN AMERICAN > 60; MAGNESIUM 2.1 mg/dL (1.7-2.2)
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
== END 2017-06-12 13:25 | disposition home or self-care (01) | DRG 690 ==
LOC: ED 13:43 → ERH 17:38 → 5RNO 18:43
PROVIDERS: ADMIT Internal Medicine; ATTEND Internal Medicine
PROC: 0TP97DZ Removal of Intraluminal Device from Ureter, Via Natural or Artificial Opening (ICD-10-PCS; principal; 2017-06-09)
DX: N39.0 Urinary tract infection, site not specified (principal); N17.9 Acute kidney failure, unspecified; N20.0 Calculus of kidney; I12.9 Hypertensive chronic kidney disease with stage 1 through stage 4 chronic kidney disease, or unspecified chronic kidney disease; N18.9 Chronic kidney disease, unspecified; I48.91 Unspecified atrial fibrillation; N28.1 Cyst of kidney, acquired; I25.10 Atherosclerotic heart disease of native coronary artery without angina pectoris; E78.5 Hyperlipidemia, unspecified; G47.00 Insomnia, unspecified; Z95.1 Presence of aortocoronary bypass graft; Z85.038 Personal history of other malignant neoplasm of large intestine; Z87.891 Personal history of nicotine dependence; Z79.01 Long term (current) use of anticoagulants

== ENCOUNTER 2017-09-13 14:39 | Emergency (ER) | payer MEDICARE ==
[2017-09-13 14:48] VITALS: BMI 26.9
[2017-09-13] MEDS ORDERED: Silver Nitrate Topical - Stick TOP ONE (14:59)
--- NOTE | 2017-09-13 15:38 | ED PDOC ---
Arrival/HPI - General Chief Complaint: Abnormal Skin Integrity Time Seen by Provider: 09/13/17 14:59 Historian: Patient - History of Present Illness Narrative History of Present Illness (Text): 09/13/17 15:34 86yo male with PMHx of hypertension present with complaint of persistent wound bleeding. The who was by the bedside states patient had a biopsy on the frontal scalp growth on his head this morning and has been bleeding since then. The states they spoke with the Doctor that did the biopsy and was told is okay to bleed. Patient notes that he is on Elquis, which he didn't stop prior to the procedure today. He otherwise denies dizziness, SOB, chest pain, SOB, diaphoresis, focal weakness, visual changes, any other complaint. Past Medical History - Provider Review Nursing Documentation Reviewed: Yes - Infectious Disease Hx of Infectious Diseases: None - Tetanus Immunization Tetanus Immunization: Unknown - Cardiac Hx Cardiac Disorders: Yes Hx Hypertension: Yes - Pulmonary Hx Respiratory Disorders: No - Neurological Hx Paralysis: No - HEENT Hx HEENT Disorder: No - Renal Hx Renal Disorder: No Hx Kidney Stones: Yes - Endocrine/Metabolic Hx Endocrine Disorders: No - Hematological/Oncological Hx Blood Transfusions: No - Integumentary Hx Dermatological Disorder: No - Musculoskeletal/Rheumatological Hx Musculoskeletal Disorders: No - Gastrointestinal Hx Bowel Surgery: Yes - Genitourinary/Gynecological Other/Comment: colon CA - Psychiatric Hx Emotional Abuse: No Hx Physical Abuse: No Hx Substance Use: No - Surgical History Other/Comment: urinary stents - Anesthesia Hx Malignant Hyperthermia: No - Suicidal Assessment Feels Threatened In Home Enviroment: No Family/Social History - Physician Review Nursing Documentation Reviewed: Yes Family/Social History: Unknown Family HX Smoking Status: Former Smoker Hx Alcohol Use: No Hx Substance Use: No Allergies/Home Meds Allergies/Adverse Reactions: Allergies No Known Allergies Allergy (Verified 06/07/17 14:51) Home Medications: Home Meds Medication Instructions Recorded Confirmed Carvedilol [Coreg] 12.5 mg PO DAILY 06/07/17 09/13/17 Quinapril [Accupril] 20 mg PO DAILY 06/07/17 09/13/17 Simvastatin [Zocor] 40 mg PO DAILY 06/07/17 09/13/17 Spironolactone [Aldactone] 25 mg PO DAILY 06/07/17 09/13/17 Review of Systems - Physician Review All systems were reviewed & negative as marked: Yes - Review of Systems Constitutional: Normal Eyes: Normal ENT: Normal Respiratory: Normal Cardiovascular: Normal Gastrointestinal: Normal Genitourinary Male: Normal Musculoskeletal: Normal Skin: Other (Bleeding wound) Neurological: Normal Endocrine: Normal Hemo/Lymphatic: Normal Psychiatric: Normal Physical Exam Vital Signs Reviewed: Yes Vital Signs Temp Pulse Resp BP Pulse Ox 09/13/17 17:07 98.6 F 61 18 172/89 H 98 Temperature: Afebrile Blood Pressure: Normal Pulse: Regular Respiratory Rate: Normal Appearance: Positive for: Well-Appearing, Non-Toxic, Comfortable Pain Distress: None Mental Status: Positive for: Alert and Oriented X 3 - Systems Exam Head: Present: Atraumatic, Normocephalic Pupils: Present: PERRL Extroacular Muscles: Present: EOMI Conjunctiva: Present: Normal Mouth: Present: Moist Mucous Membranes Neck: Present: Normal Range of Motion Respiratory/Chest: Present: Clear to Auscultation, Good Air Exchange. No: Respiratory Distress, Accessory Muscle Use Cardiovascular: Present: Regular Rate and Rhythm, Normal S1, S2. No: Murmurs Abdomen: No: Tenderness, Distention, Peritoneal Signs Back: Present: Normal Inspection Upper Extremity: Present: Normal Inspection. No: Cyanosis, Edema Lower Extremity: Present: Normal Inspection. No: Edema Neurological: Present: GCS=15, CN II-XII Intact, Speech Normal Skin: Present: Warm, Dry, Normal Color, Other (wide margin open wound noted on frontal scalp with acitve bleeding). No: Rashes Psychiatric: Present: Alert, Oriented x 3, Normal Insight, Normal Concentration Medical Decision Making ED Course and Treatment: 09/14/17 00:55 PT in ED for stated history. He deneid any other somatic complaint. Bleeding was eventually controlled with combination of silver nitrate, surgi seal and compression dressing. Case was DW Dr. Werner, pt's Supervisory Air Intercept Controller and he recommends pressure dressing and discharge for outp pt f/u. states pt should f/u with his office tomorrow. Plan was DW both pt and the and they agreed. He left the ED with pressure dressing in place. - Medication Orders Current Medication Orders: Discontinued Medications Silver Nitrate (Silver Nitrate Topical Stick) 1 swa TOP ONCE ONE Stop: 09/13/17 15:00 Last Admin: 09/13/17 15:23 Dose: 1 swa Disposition/Present on Arrival - Present on Arrival Any Indicators Present on Arrival: No History of DVT/PE: No History of Uncontrolled Diabetes: No Urinary Catheter: No History of Decub. Ulcer: No History Surgical Site Infection Following: None - Disposition Have Diagnosis and Disposition been Completed?: Yes Diagnosis: Bleeding from wound Disposition: HOME/ ROUTINE Disposition Time: 17:20 Patient Plan: Discharge Condition: STABLE Discharge Instructions (ExitCare): Bleeding After Surgery Additional Instructions: Follow up with your Supervisory Air Intercept Controller, Dr. Werner tomorrow Return to ED for any new or worsening symptoms Referrals: Kirill Espinosa MD [Primary Care Provider] - Follow up with primary Forms: [employer] ([place]yan)
[2017-09-13 17:13] VITALS: BP 172/89; PULSE 61; RESP 18; TEMP 98.6; O2SAT 98
== END 2017-09-13 17:43 | disposition home or self-care (01) ==
LOC: ED 14:39
DX: L76.22 Postprocedural hemorrhage of skin and subcutaneous tissue following other procedure (principal); I10 Essential (primary) hypertension; Z87.891 Personal history of nicotine dependence; Z85.038 Personal history of other malignant neoplasm of large intestine

== ENCOUNTER 2017-09-13 21:49 | Emergency (ER) | payer MEDICARE ==
[2017-09-13 21:49] VITALS: BMI 26.9
[2017-09-13 22:10] VITALS: BP 181/93; PULSE 57; RESP 20; O2SAT 96
[2017-09-13] MEDS ORDERED: Absorbable Gelatin Sponge Size 100 MM ONE (22:20)
--- NOTE | 2017-09-13 23:11 | ED PDOC ---
Arrival/HPI - General Historian: Patient - History of Present Illness Time/Duration: Prior to Arrival, 1 hour Symptom Onset: Sudden Symptom Course: Unchanged Activities at Onset: Rest <James Merchant - Last Filed: 09/14/17 00:43> <Marc Wylie - Last Filed: 09/14/17 20:23> - General Chief Complaint: Abnormal Skin Integrity Time Seen by Provider: 09/13/17 22:02 - History of Present Illness Narrative History of Present Illness (Text): 09/13/17 23:06 Patient was seen earlier this morning in the emergency room for the same complaint. Patient had a biopsy on growth on his head this morning with Dr. Werner (Dermatology). They were able to stop the bleed and the patient was discharged home. Per the , who is as bedside, states she spoke with Dr. Werner that did the biopsy and was told is okay to bleed. Patient notes that he is on Eliquis, which he didn't stop prior to the procedure today. Approximately an hour ago, the patient began to bleed again. She got nervous and decided to bring the patient back. He has mild pain at the surgical site but no other complaints at this time. Denies any lightheadedness, dizziness, vision changes, LOC, SOB, chest pain, weakness or additional trauma to surgical site. (James Merchant) Past Medical History - Provider Review Nursing Documentation Reviewed: Yes - Infectious Disease Hx of Infectious Diseases: None - Tetanus Immunization Tetanus Immunization: Unknown - Cardiac Hx Cardiac Disorders: Yes Hx Hypertension: Yes - Pulmonary Hx Respiratory Disorders: No - Neurological Hx Paralysis: No - HEENT Hx HEENT Disorder: No - Renal Hx Renal Disorder: No Hx Kidney Stones: Yes - Endocrine/Metabolic Hx Endocrine Disorders: No - Hematological/Oncological Hx Blood Transfusions: No - Integumentary Hx Dermatological Disorder: No - Musculoskeletal/Rheumatological Hx Musculoskeletal Disorders: No - Gastrointestinal Hx Bowel Surgery: Yes - Genitourinary/Gynecological Other/Comment: colon CA - Psychiatric Hx Emotional Abuse: No Hx Physical Abuse: No Hx Substance Use: No - Surgical History Other/Comment: urinary stents - Anesthesia Hx Malignant Hyperthermia: No - Suicidal Assessment Feels Threatened In Home Enviroment: No <James Merchant - Last Filed: 09/14/17 00:43> Family/Social History - Physician Review Nursing Documentation Reviewed: Yes Family/Social History: Unknown Family HX Smoking Status: Former Smoker Hx Alcohol Use: No Hx Substance Use: No <James Merchant - Last Filed: 09/14/17 00:43> Allergies/Home Meds <James Merchant - Last Filed: 09/14/17 00:43> <Marc Wylie - Last Filed: 09/14/17 20:23> Allergies/Adverse Reactions: Allergies No Known Allergies Allergy (Verified 06/07/17 14:51) Home Medications: Home Meds Medication Instructions Recorded Confirmed Carvedilol [Coreg] 12.5 mg PO DAILY 06/07/17 09/13/17 Quinapril [Accupril] 20 mg PO DAILY 06/07/17 09/13/17 Simvastatin [Zocor] 40 mg PO DAILY 06/07/17 09/13/17 Spironolactone [Aldactone] 25 mg PO DAILY 06/07/17 09/13/17 Review of Systems - Physician Review All systems were reviewed & negative as marked: Yes - Review of Systems Constitutional: Normal. absent: Fatigue Eyes: Normal. absent: Vision Changes Respiratory: Normal. absent: SOB, Cough Cardiovascular: Normal. absent: Chest Pain, Palpitations Skin: Other (bleeding from surgical site on head) Neurological: Normal. absent: Headache, Dizziness <James Merchant - Last Filed: 09/14/17 00:43> Physical Exam Vital Signs Reviewed: Yes Blood Pressure: Hypertensive Pulse: Bradycardic Respiratory Rate: Normal Appearance: Positive for: Well-Appearing, Non-Toxic, Comfortable Pain Distress: None Mental Status: Positive for: Alert and Oriented X 3 - Systems Exam Head: Present: Other (slow, dripping bleed from anterior portion of surgical site) Pupils: Present: PERRL Extroacular Muscles: Present: EOMI Conjunctiva: Present: Normal Mouth: Present: Moist Mucous Membranes Nose (External): Present: Atraumatic Nose (Internal): Present: Normal Inspection, No Active Bleeding Respiratory/Chest: No: Respiratory Distress, Accessory Muscle Use Cardiovascular: Present: Bradycardic (55 bpm on monitor ) <James Merchant - Last Filed: 09/14/17 00:43> Vital Signs Pulse Resp BP Pulse Ox 09/13/17 22:09 57 L 20 181/93 H 96 Medical Decision Making Re-evaluation Time: 00:31 Reassessment Condition: Re-examined, Improving,but remains with symptoms <James Merchant - Last Filed: 09/14/17 00:43> <Marc Wylie - Last Filed: 09/14/17 20:23> ED Course and Treatment: Placed piece of gel foam on bleeding site, applied pressure with robert wrap. Dr. Werner was called earlier this afternoon during the patient's first ED visit and stated that he does not want anyone to touch his surgical site. 09/14/17 00:26 Bleeding has slowed down. Discussed with patient and the need to keep wrap on place. Stressed the need to follow up with Dr. Werner in the morning. Patient and state they understand and patient states that he wants to go home. Patient denies any pain, headaches, lightheadedness, dizziness, vision changes, shortness of breath, chest pain or weakness at this time. (James Merchant) Impression: Pt seen and evaluated with medical assistant ob gyn. Aware and agree with HPI, clinical findings, plan, and management. Pt presented for bleeding from skin biopsy site tonight. Pt underwent biopsy this morning and was seen in the Emergency department this morning for complaint, but bleeding started again tonight. Plan: -- Reassess and disposition Bleeding controlled by resident with gel foam and pressure wrap to site. On re- evaluation, patient feels better and is in no acute distress. Patient in agreement with plan to be discharged home. Patient is stable for discharge. Patient was instructed to follow up with game warden tomorrow morning or return if symptoms worsen or new concerning symptoms arise. (Marc Wylie) - Medication Orders Current Medication Orders: Discontinued Medications Gelatin (Gelfoam Size 100) 1 spg MM ONCE ONE Stop: 09/13/17 22:21 Last Admin: 09/13/17 22:58 Dose: 1 spg - PA / SHOP TAILOR APPRENTICE / Resident Statement / has reviewed & agrees with the documentation as recorded. / has examined the patient and agrees with the treatment plan. <Marc Wylie - Last Filed: 09/14/17 20:23> Disposition/Present on Arrival - Present on Arrival Any Indicators Present on Arrival: No History of DVT/PE: No History of Uncontrolled Diabetes: No Urinary Catheter: No History of Decub. Ulcer: No History Surgical Site Infection Following: None - Disposition Have Diagnosis and Disposition been Completed?: Yes Disposition Time: 00:31 Patient Plan: Discharge <James Merchant - Last Filed: 09/14/17 00:43> <Marc Wylie - Last Filed: 09/14/17 20:23> - Disposition Diagnosis: Bleeding from wound Disposition: HOME/ ROUTINE Condition: IMPROVED Discharge Instructions (ExitCare): Bleeding After Surgery Additional Instructions: Patient is to be discharged home. It was stressed to the patient and his that he needs to follow up with Dr. Werner in the morning. They are to keep wrap on patient's head until he is able to be seen by Dr. Werner. They understand and are in agreement with discharge plan. Patient is to go to the nearest emergency room if he has any new or worsening symptoms. Referrals: Kirill Espinosa MD [Primary Care Provider] - Follow up with primary Forms: [employer] ([place])
== END 2017-09-14 00:43 | disposition home or self-care (01) ==
LOC: ED 21:49
DX: L76.22 Postprocedural hemorrhage of skin and subcutaneous tissue following other procedure (principal); I10 Essential (primary) hypertension; Z87.891 Personal history of nicotine dependence

== ENCOUNTER 2018-07-24 11:07 | Emergency (ER) | payer MEDICARE ==
[2018-07-24 11:07] VITALS: BMI 27.2
[2018-07-24 12:16] VITALS: RESP 18; TEMP 98.2
[2018-07-24 12:46] LABS: URINE BILIRUBIN NEGATIVE (NEGATIVE); URINE BLOOD LARGE (NEGATIVE); URINE GLUCOSE (UA) NEGATIVE (NEGATIVE); URINE LEUKOCYTE ESTERASE NEGATIVE Leu/uL (NEGATIVE); URINE PROTEIN NEGATIVE mg/dL (<30 mg/dL); URINE UROBILINOGEN 0.2 E.U./dL (<1 E.U./dL)
[2018-07-24 12:53] LABS: URINE APPEARANCE CLEAR (CLEAR); URINE COLOR LIGHT YELLOW (YELLOW)
[2018-07-24 13:00] LABS: URINE WBC 0 - 2 /hpf (0-6)
[2018-07-24 13:01] LABS: URINE BACTERIA FEW /hpf; URINE RBC 15 - 20 /hpf (0-2)
[2018-07-24 13:13] LABS: BASO # 0.01 K/mm3 (0.0-2.0); BASO % 0.1 % (0.0-3.0); EOS # 0.1 (0.0-0.7); EOS % 1.7 % (1.5-5.0); HEMOGLOBIN 13.2 g/dL (14.0-18.0); LYMPH # 2.7 (1.2-3.4); LYMPH % 35.2 % (22.0-35.0); MEAN CELL VOLUME 97.6 fl (80.0-105.0); MEAN CORPUSCULAR HEMOGLOBIN 32.1 pg (25.0-35.0); MEAN CORPUSCULAR HGB CONC 32.9 g/dl (31.0-37.0); MEAN PLATELET VOLUME 10.2 fl (7.0-11.0); MONO # 0.9 (0.1-0.6); MONO % 11.1 % (1.0-6.0); RBC 4.11 10^6/uL (3.5-6.1); WHITE BLOOD COUNT 7.7 10^3/uL (4.5-11.0)
[2018-07-24 13:21] LABS: PARTIAL THROMBOPLASTIN TIME 37.4 Seconds (26.9-38.3); PROTHROMBIN TIME 22.6 SECONDS (9.4-12.5)
[2018-07-24 13:27] LABS: ALB/GLOB RATIO 1.1 (1.1-1.8); ALBUMIN 4.3 g/dL (3.0-4.8); ALT/SGPT 18 U/L (7-56); AST/SGOT 29 U/L (17-59); BLOOD UREA NITROGEN 26 mg/dL (7-21); CALCIUM 9.9 mg/dL (8.4-10.5); GFR NON-AFRICAN AMERICAN 52
--- NOTE | 2018-07-24 14:17 | CT ---
Date of service: 07/24/2018 PROCEDURE: CT Abdomen and Pelvis without intravenous contrast HISTORY: hematuria, lower abd pain/ hx of stones COMPARISON: None. TECHNIQUE: Technique. Contrast dose: Radiation dose: Total exam DLP = 672.65 mGy-cm. This CT exam was performed using one or more of the following dose reduction techniques: Automated exposure control, adjustment of the mA and/or kV according to patient size, and/or use of iterative reconstruction technique. FINDINGS: LOWER THORAX: Unremarkable. LIVER: Unremarkable. No gross lesion or ductal dilatation. GALLBLADDER AND BILE DUCTS: Status post cholecystectomy. PANCREAS: Unremarkable. No gross lesion or ductal dilatation. SPLEEN: Unremarkable. ADRENALS: Unremarkable. No mass. KIDNEYS AND URETERS: 7 mm right lower pole renal calculus. Bilateral renal cysts. No hydronephrosis. No solid mass. VASCULATURE: 3.6 centimeter abdominal aortic aneurysm with mural calcification. BOWEL: Unremarkable. No obstruction. No gross mural thickening. APPENDIX: Unremarkable. Normal appendix. PERITONEUM: Unremarkable. No free fluid. No free air. LYMPH NODES: Unremarkable. No enlarged lymph nodes. BLADDER: Unremarkable. REPRODUCTIVE: Unremarkable. BONES: No acute fracture. OTHER FINDINGS: None. IMPRESSION: 7 mm right lower pole renal calculus. Bilateral renal cysts. 3.6 centimeter abdominal aortic aneurysm with mural calcification. Status post cholecystectomy.
--- NOTE | 2018-07-24 14:45 | ED PDOC ---
Arrival/HPI - General Chief Complaint: Male Genitourinary Time Seen by Provider: 07/24/18 11:48 Historian: Patient - History of Present Illness Narrative History of Present Illness (Text): 07/24/18 14:36 87 y/o M with a PMH of kidney stone and Hematuria presents to the Emergency Department, followed by Dr. Cole (Urologist), complaining of hematuria x3 days with dysuria. The patient is on Eliquis. The patient mentions of gross blood but has gradual improve x3days. Patient denies any fevers, chills, headache, dizziness, chest pain, shortness of breath, dyspnea on exertion, cough, abdominal pain, nausea, vomiting, diarrhea, back pain, neck pain, or any other complaint. Time/Duration: < week Symptom Onset: Gradual Symptom Course: Unchanged Activities at Onset: Rest Context: Home Past Medical History - Provider Review Nursing Documentation Reviewed: Yes - Infectious Disease Hx of Infectious Diseases: None - Tetanus Immunization Tetanus Immunization: Unknown - Cardiac Hx Hypertension: Yes - Pulmonary Hx Respiratory Disorders: No - Neurological Hx Paralysis: No - HEENT Hx HEENT Disorder: No - Renal Hx Renal Disorder: No Hx Kidney Stones: Yes - Endocrine/Metabolic Hx Endocrine Disorders: No - Hematological/Oncological Hx Blood Transfusions: No - Integumentary Hx Dermatological Disorder: No - Musculoskeletal/Rheumatological Hx Musculoskeletal Disorders: No - Gastrointestinal Hx Bowel Surgery: Yes - Genitourinary/Gynecological Other/Comment: colon CA - Psychiatric Hx Emotional Abuse: No Hx Physical Abuse: No Hx Substance Use: No - Surgical History Hx Cardiac Catheterization: Yes (stent x1) Hx Coronary Artery Bypass Graft: Yes - Anesthesia Hx Anesthesia: Yes Hx Anesthesia Reactions: No Hx Malignant Hyperthermia: No - Suicidal Assessment Feels Threatened In Home Enviroment: No Family/Social History - Physician Review Nursing Documentation Reviewed: Yes Family/Social History: No Known Family HX Smoking Status: Former Smoker Hx Alcohol Use: No Hx Substance Use: No Allergies/Home Meds Allergies/Adverse Reactions: Allergies No Known Allergies Allergy (Verified 06/07/17 14:51) Home Medications: Home Meds Medication Instructions Recorded Confirmed Carvedilol [Coreg] 12.5 mg PO DAILY 06/07/17 02/10/18 Quinapril [Accupril] 20 mg PO DAILY 06/07/17 02/10/18 Simvastatin [Zocor] 40 mg PO DAILY 06/07/17 02/10/18 Spironolactone [Aldactone] 25 mg PO DAILY 06/07/17 02/10/18 ALPRAZolam [Xanax] 0.25 mg PO DAILY PRN 02/10/18 02/10/18 Review of Systems - Physician Review All systems were reviewed & negative as marked: Yes - Review of Systems Constitutional: absent: Fatigue, Fevers ENT: absent: Sore Throat, Rhinorrhea Respiratory: absent: SOB, Cough, Wheezing Cardiovascular: absent: Chest Pain, Syncope Gastrointestinal: absent: Abdominal Pain, Diarrhea, Nausea, Vomiting Genitourinary Male: Dysuria, Hematuria Musculoskeletal: absent: Arthralgias, Back Pain, Neck Pain Skin: Normal. absent: Rash, Pruritis Neurological: absent: Headache, Dizziness Psychiatric: absent: Anxiety, Depression Physical Exam Vital Signs Reviewed: Yes Vital Signs Temp Pulse Resp BP Pulse Ox 07/24/18 11:07 98.2 F 55 L 18 151/74 H 97 Temperature: Afebrile Blood Pressure: Hypertensive Pulse: Regular Respiratory Rate: Normal Appearance: Positive for: Well-Appearing, Non-Toxic, Comfortable Pain Distress: None Mental Status: Positive for: Alert and Oriented X 3 - Systems Exam Head: Present: Atraumatic, Normocephalic Mouth: Present: Moist Mucous Membranes Neck: Present: Normal Range of Motion Respiratory/Chest: Present: Clear to Auscultation. No: Respiratory Distress, Wheezes, Retracting, Rhonchi, Tachypneic Cardiovascular: Present: Regular Rate and Rhythm, Normal S1, S2 Abdomen: Present: Tenderness (Minimal Suprapubic tenderness). No: Distention, Rebound, Guarding Back: Present: Normal Inspection. No: CVA Tenderness, Midline Tenderness, Paraspinal Tenderness Upper Extremity: Present: Normal ROM Lower Extremity: Present: Normal Inspection, Normal ROM Neurological: Present: GCS=15, Speech Normal Skin: Present: Warm, Dry, Normal Color. No: Rashes Psychiatric: Present: Alert, Oriented x 3 Medical Decision Making ED Course and Treatment: 07/24/18 14:48 Impression: 87 y/o M presents to the Emergency Department, followed by Dr. Cole (Urologist), complaining of hematuria x3 days with dysuria. Differential Diagnosis included but are not limited to: Plan: --UA --Keflex -- Reassess and disposition Prior Visits: Notes and results from previous visits were reviewed. 07/24/18 14:53 CT: FINDINGS: LOWER THORAX: Unremarkable. LIVER: Unremarkable. No gross lesion or ductal dilatation. GALLBLADDER AND BILE DUCTS: Status post cholecystectomy. PANCREAS: Unremarkable. No gross lesion or ductal dilatation. SPLEEN: Unremarkable. ADRENALS: Unremarkable. No mass. KIDNEYS AND URETERS: 7 mm right lower pole renal calculus. Bilateral renal cysts. No hydronephrosis. No solid mass. VASCULATURE: 3.6 centimeter abdominal aortic aneurysm with mural calcification. BOWEL: Unremarkable. No obstruction. No gross mural thickening. APPENDIX: Unremarkable. Normal appendix. PERITONEUM: Unremarkable. No free fluid. No free air. LYMPH NODES: Unremarkable. No enlarged lymph nodes. BLADDER: Unremarkable. REPRODUCTIVE: Unremarkable. BONES: No acute fracture. OTHER FINDINGS: None. IMPRESSION: 7 mm right lower pole renal calculus. Bilateral renal cysts. 3.6 centimeter abdominal aortic aneurysm with mural calcification. Status post cholecystectomy. cbc; wnl cmp; wnl UA: + blood, no leukocytes. yellow urine. all results us with patient and his in depth. Will start the patient on Keflex. Advised follow-up with urologist within the next 2 days. Advised immediate return if bleeding continues. Advised follow-up with PMD within the next 2 days. Patient verbalizes understanding of discharge instructions and need for immediate followup. all aspects of this case were discussed the attending of record. impression: Hematuria, dysuria Keflex one capsule twice daily 7 days Increase fluids Follow the primary care physician within the next 2 days Follow-up with urologist within the next 2 days Return immediately if symptoms worsen persist or if new concerning symptoms develop - Lab Interpretations Lab Results: PT 22.6 SECONDS (9.4-12.5) H 07/24/18 12:57 INR 2.00 07/24/18 12:57 APTT 37.4 Seconds (26.9-38.3) 07/24/18 12:57 Total Bilirubin 1.1 mg/dL (0.2-1.3) 07/24/18 12:57 AST 29 U/L (17-59) 07/24/18 12:57 ALT 18 U/L (7-56) 07/24/18 12:57 Alkaline Phosphatase 117 U/L (38-126) 07/24/18 12:57 Total Protein 8.3 g/dL (5.8-8.3) 07/24/18 12:57 Albumin 4.3 g/dL (3.0-4.8) 07/24/18 12:57 Globulin 4.0 gm/dL 07/24/18 12:57 Albumin/Globulin Ratio 1.1 (1.1-1.8) 07/24/18 12:57 Urine Color Light yellow (YELLOW) 07/24/18 12:27 Urine Appearance Clear (CLEAR) 07/24/18 12:27 Urine pH 6.0 (4.7-8.0) 07/24/18 12:27 Ur Specific [place] <= 1.005 (1.005-1.035) 07/24/18 12:27 Urine Protein Negative mg/dL (<30 mg/dL) 07/24/18 12:27 Urine Glucose (UA) Negative mg/dL (NEGATIVE) 07/24/18 12:27 Urine Ketones Negative mg/dL (NEGATIVE) 07/24/18 12:27 Urine Blood Large (NEGATIVE) H 07/24/18 12:27 Urine Nitrate Negative (NEGATIVE) 07/24/18 12:27 Urine Bilirubin Negative (NEGATIVE) 07/24/18 12:27 Urine Urobilinogen 0.2 E.U./dL (<1 E.U./dL) 07/24/18 12:27 Ur Leukocyte Esterase Negative Luca/uL (NEGATIVE) 07/24/18 12:27 Urine RBC 15 - 20 /hpf (0-2) H 07/24/18 12:27 Urine WBC 0 - 2 /hpf (0-6) 07/24/18 12:27 Ur Epithelial Cells None /hpf (0-5) 07/24/18 12:27 Urine Bacteria Few /hpf (NONE) 07/24/18 12:27 - RAD Interpretation Radiology Orders: 07/24/18 12:42 ABD & PELVIS W/O PO OR IV CONT [CT] Stat - PA / DIRECTOR [employer] / Resident Statement MD/DO has reviewed & agrees with the documentation as recorded. - Scribe Statement The provider has reviewed the documentation as recorded by the Scribmichelle Bergman All medical record entries made by the Scribe were at my direction and personally dictated by me. I have reviewed the chart and agree that the record accurately reflects my personal performance of the history, physical exam, medical decision making, and the department course for this patient. I have also personally directed, reviewed, and agree with the discharge instructions and disposition. Disposition/Present on Arrival - Present on Arrival Any Indicators Present on Arrival: No History of DVT/PE: No History of Uncontrolled Diabetes: No Urinary Catheter: No History of Decub. Ulcer: No History Surgical Site Infection Following: None - Disposition Have Diagnosis and Disposition been Completed?: Yes Diagnosis: Hematuria, Dysuria Disposition: HOME/ ROUTINE Disposition Time: 15:06 Patient Plan: Discharge Condition: GOOD Discharge Instructions (ExitCare): Dysuria, Adult (DC), Blood in the Urine (Hematuria), Adult (DC) Additional Instructions: Keflex one capsule twice daily 7 days Increase fluids Follow the primary care physician within the next 2 days Follow-up with urologist within the next 2 days Return immediately if symptoms worsen persist or if new concerning symptoms develop Prescriptions: Cephalexin [Keflex] 500 mg PO BID #14 capsule Referrals: Kirill Espinosa MD [Primary Care Provider] - Follow up with primary Nikos Cole MD [Staff Provider] - Follow up with primary Jose Mai MD [Staff Provider] - Follow up with primary Forms: [employer] ([place])
[2018-07-24 15:34] VITALS: BP 147/72; PULSE 61; O2SAT 100
== END 2018-07-24 15:23 | disposition home or self-care (01) ==
LOC: ED 11:07
DX: R31.9 Hematuria, unspecified (principal); R30.0 Dysuria; I10 Essential (primary) hypertension; Z79.01 Long term (current) use of anticoagulants